=== PATIENT | female | born 1945 | race Caucasian/White ===

== ENCOUNTER → 2018-07-07 | Outpatient (CLI) | payer MEDICARE ==
[2018-07-07 13:26] LABS: Blood Urea Nitrogen 16 mg/dL (7-17)
--- NOTE | 2018-07-07 16:17 | CT ---
EXAMINATION TYPE: CT abdomen pelvis w con DATE OF EXAM: 07/07/2018 COMPARISON: Prior CT 03/13/2016 HISTORY: Abdominal and pelvic pain CT DLP: 1307 mGycm Automated exposure control for dose reduction was used. TECHNIQUE: Helical acquisition of images from the lung bases through the pelvis have been completed. CONTRAST: Performed without Oral Contrast and with IV Contrast, patient injected with 100 mL of Isovue 300. FINDINGS: There is a small hiatal hernia. Increased attenuation within the subcutaneous fat of the an terior lower abdomen may be due to injections, edema, ecchymosis, correlate. LUNG BASES: No significant interval change is appreciated, there are findings of interstitial lung di sease, no pleural or pericardial effusion. Coronary artery calcifications are present. AORTA: No significant interval change is appreciated, dense vascular calcifications are present. LIVER/GB: Liver shows low attenuation, gallbladder is normal. PANCREAS: No significant abnormality is seen. SPLEEN: No significant abnormality is seen. ADRENALS: No significant abnormality is seen. KIDNEYS: No significant abnormality is seen. REPRODUCTIVE ORGANS: Not seen BOWEL: There is a large amount of retained fecal debris present. The appendix is normal. FREE AIR: No Free Air visible. ASCITES: None visible. PELVIC ADENOPATHY: None visualized. RETROPERITONEAL ADENOPATHY: No Retroperitoneal Adenopathy visible. URINARY BLADDER: No significant abnormality is seen. OSSEOUS STRUCTURES: No significant abnormality is seen. IMPRESSION: CORRELATE FOR FECAL STASIS. No significant interval change. Correlate for hepatic steatosis. Addition al findings above.
== END | disposition home or self-care (01) ==
LOC: RADCTMAIN 12:25
PROVIDERS: ATTEND Family Medicine
DX: K59.09 Other constipation (principal); K44.9 Diaphragmatic hernia without obstruction or gangrene
CPT/HCPCS: 82565; 84520; 74177; 36415; Q9967

== ENCOUNTER 2019-01-31 03:33 | Observation (INO) | payer MEDICARE ==
--- NOTE | 2019-01-31 04:05 | ED ---
Chest Pain HPI - General Chief Complaint: Chest Pain Stated Complaint: Chest pain Time Seen by Provider: 01/31/19 03:49 Source: patient Mode of arrival: ambulatory Limitations: no limitations - History of Present Illness Initial Comments: This patient is 73-year-old woman who presents to the hospital to be evaluated for chest pain. She states that this had come on this morning after she had gotten up out of bed to use the bathroom. She noted the chest pain in the left chest, it was a heavy feeling. She states it is moderate intensity. She took a spirin and a total of 4 nitroglycerin and the sensation didn't resolve. She states she had similar episode last month, and went to [facility], where she had been admitted in the hospital. She states that she did have a diagnostic heart cath there and was told that she has to arteries on the backside of her heart that are at 70% blockage. She states she is scheduled to have stents placed on February 13 of this year. The patient states that she feels back at her baseline now. MD Complaint: chest pain Onset/Timin -: hour(s) Pain Location: left chest Pain Radiation: none Severity: moderate Quality: heaviness Consistency: now resolved Improves With: nitroglycerin Treatments Prior to Arrival: aspirin, nitroglycerin - Related Data Home Medications Medication Instructions Recorded Confirmed Albuterol Inhaler [Ventolin Hfa 2 puff INHALATION RT-Q6H PRN 03/13/16 03/13/16 Inhaler] Aspirin EC [Ecotrin Low Dose] 81 mg PO BID 03/13/16 03/13/16 Atorvastatin [Lipitor] 40 mg PO HS 03/13/16 03/13/16 Isosorbide Mononitrate ER [Imdur] 60 mg PO DAILY 03/13/16 03/13/16 Linaclotide [Linzess] 145 mcg PO DAILY 03/13/16 03/13/16 Lisinopril [Zestril] 5 mg PO DAILY 03/13/16 03/13/16 Loratadine [Claritin] 10 mg PO DAILY PRN 03/13/16 03/13/16 Metoprolol Succinate [Toprol XL] 50 mg PO HS 03/13/16 03/13/16 Nitroglycerin Sl Tabs [Nitrostat] 0.4 mg SUBLINGUAL Q5M PRN 03/13/16 03/13/16 Ranitidine HCl [Zantac] 150 mg PO BID PRN 03/13/16 03/13/16 lamoTRIgine [LaMICtal] 200 mg PO DAILY 03/13/16 03/13/16 sitaGLIPtin PHOS/metFORMIN HCL 2 tab PO W/SUPPER 03/13/16 03/13/16 [Janumet Xr 50-1,000 mg Tablet] traZODone HCL 50 mg PO HS PRN 03/13/16 03/13/16 traZODone HCL [Desyrel] 100 mg PO HS PRN 03/13/16 03/13/16 Previous Rx's Medication Instructions Recorded Levofloxacin [Levaquin] 500 mg PO DAILY #7 tab 03/15/16 Allergies Allergy/AdvReac Type Severity Reaction Status Date / Time No Known Allergies Allergy Verified 01/31/19 03:47 Review of Systems ROS Statement: Those systems with pertinent positive or pertinent negative responses have been documented in the HPI. ROS Other: All systems not noted in ROS Statement are negative. Constitutional: Denies: fever, chills, weakness Respiratory: Denies: cough, dyspnea Cardiovascular: Reports: as per HPI, chest pain. Denies: palpitations, orthopnea, edema, syncope Gastrointestinal: Denies: abdominal pain, vomiting, diarrhea Genitourinary: Denies: dysuria, hematuria Musculoskeletal: Denies: back pain Skin: Denies: rash Neurological: Denies: headache EKG Findings - EKG Results: EKG: interpreted by ERMD, sinus rhythm (Rate 68 bpm), normal axis, normal QRS, normal ST/T, no acute changes Past Medical History Past Medical History: Coronary Artery Disease (CAD), Chest Pain / Angina, COPD, Diabetes Mellitus, GERD/Reflux, Hyperlipidemia, Hypertension Additional Past Medical History / Comment(s): gastritis, diverticulitis History of Any Multi-Drug Resistant Organisms: None Reported Past Surgical History: Heart Catheterization With Stent, Hysterectomy, Orthopedic Surgery Additional Past Surgical History / Comment(s): Right knee replacement. Date of Last Stent Placement:: unknown Past Psychological History: Depression Smoking Status: Former smoker Past Alcohol Use History: None Reported Past Drug Use History: None Reported - Past Family History Father Family Medical History: Cancer, CVA/TIA Mother Family Medical History: Cancer, Myocardial Infarction ([place]) General Exam Limitations: no limitations General appearance: alert, in no apparent distress Head exam: Present: atraumatic, normocephalic Eye exam: Present: normal appearance. Absent: scleral icterus, conjunctival injection ENT exam: Present: normal oropharynx Neck exam: Present: normal inspection Respiratory exam: Present: wheezes (Trace expiratory wheeze), rales (Bilateral bases). Absent: respiratory distress, rhonchi, stridor, chest wall tenderness, accessory muscle use, decreased breath sounds Cardiovascular Exam: Present: regular rate, normal rhythm, systolic murmur (There is a grade 3/6 growling systolic ejection murmur, As it with aortic stenosis.). Absent: diastolic murmur, rubs, gallop GI/Abdominal exam: Present: soft. Absent: distended, tenderness, guarding, rebound, rigid, mass Extremities exam: Present: normal inspection, normal capillary refill. Absent: pedal edema, calf tenderness Back exam: Present: normal inspection. Absent: CVA tenderness (R), CVA tenderness (L) Neurological exam: Present: alert Skin exam: Present: warm, dry, intact, normal color. Absent: rash Course Vital Signs 01/31/19 01/31/19 01/31/19 03:44 03:50 04:10 Temperature 97.6 F Pulse Rate 75 60 61 Respiratory 20 19 20 Rate Blood Pressure 165/78 165/78 155/70 O2 Sat by Pulse 93 L 95 96 Oximetry 01/31/19 01/31/19 01/31/19 04:30 05:00 05:20 Temperature Pulse Rate 62 59 L 55 L Respiratory 19 17 18 Rate Blood Pressure 157/72 159/78 144/65 O2 Sat by Pulse 95 94 L 95 Oximetry Disposition Clinical Impression: Unstable angina pectoris Disposition: ADMITTED IP TO THIS HOSP Condition: Serious Is patient prescribed a controlled substance at d/c from ED?: No Referrals: Manjit Malhotra MD [Primary Care Provider] - 1-2 days
[2019-01-31 04:22] LABS: HGB 13.5 gm/dL (11.4-16.0); MCH 27.5 pg (25.0-35.0); MCV 85.8 fL (80.0-100.0); WBC 7.9 k/uL (3.8-10.6)
[2019-01-31 04:23] LABS: Basophils # (A) 0.1 k/uL (0-0.2); Basophils % (A) 1 %; Eosinophils # (A) 0.5 k/uL (0-0.7); Eosinophils % (A) 7 %; Lymphocytes # (A) 2.5 k/uL (1.0-4.8); Lymphocytes % (A) 32 %; Mean Platelet Volume 6.3; Monocytes # (A) 0.7 k/uL (0-1.0); Monocytes % (A) 8 %; Neutrophils # (A) 3.8 k/uL (1.3-7.7); Neutrophils % (A) 48 %; Platelet Count 236 k/uL (150-450); RDW 13.6 % (11.5-15.5)
[2019-01-31 04:26] LABS: Albumin 4.1 g/dL (3.5-5.0); Magnesium 1.7 mg/dL (1.6-2.3); Potassium 4.5 mmol/L (3.5-5.1); Total Bilirubin 0.5 mg/dL (0.2-1.3); Total Protein 7.9 g/dL (6.3-8.2)
[2019-01-31 04:27] LABS: INR 0.9 (<1.2); Partial Thromboplastin Time 31.2 sec (22.0-30.0); Prothrombin Time 9.8 sec (9.0-12.0)
--- NOTE | 2019-01-31 04:48 | XR ---
EXAMINATION TYPE: XR chest 1V portable DATE OF EXAM: 01/31/2019 COMPARISON: 03/14/2016 HISTORY: Chest pain TECHNIQUE: Single frontal view of the chest is obtained. FINDINGS: Heart is enlarged. There is some mild pulmonary edema. There is subsegmental atelectasis i n the lower lobes. There are chest leads. IMPRESSION: There is new pulmonary edema compared to last exam and could be mild heart failure.
[2019-01-31] MEDS ORDERED: MORPHINE SULFATE 4 MG/ML SYRINGE IV STA (05:38)
[2019-01-31] MEDS ORDERED: HEPARIN SODIUM,PORCINE 5,000 UNIT/ML 1 ML VIAL IV ONE (06:03)
[2019-01-31] MEDS ORDERED: MORPHINE SULFATE 2 MG/ML SYRINGE IVP PRN (06:03)
[2019-01-31] MEDS ORDERED: NITROGLYCERIN SL TABS 0.4 MG TAB SUBLINGUAL PRN ×2 (06:03→10:34)
[2019-01-31] MEDS: HEPARIN SOD,PORK IN 0.45% NACL 25,000 UNIT in 0.45% NACL 1 250ML.BAG IV SCH (07:07)
[2019-01-31] MEDS: SODIUM CHLORIDE 0.9% 1,000 ML IV SCH ×2 (07:10→17:05)
[2019-01-31 12:08] LABS: Glucose,Whole Blood 138 mg/dL (75-99)
--- NOTE | 2019-01-31 12:26 | CONS ---
MARIA DEL ROSARIO Tian is a 73-year-old lady with history of noninsulin dependent diabetes, hypertension, coronary artery disease, status post prior angioplasty, insulin-requiring diabetes, who presents to hospital with chest pain. She describes it as precordial chest pressure, mild to moderate intensity at rest, unrelated to exertion and unassociated with diaphoresis. Because of this, she came to hospital and got admitted. Her EKG does not reveal ischemic changes. She has had 3 sets of cardiac enzymes, 2 sets of cardiac enzymes that have been within normal limits. Creatinine is normal. Hemoglobin is 13.5. Patient apparently had a stress test through Dr. Comer and was advised to undergo cardiac catheterization. This was supposed to be done as outpatient in the next 1-2 weeks. At the time of my evaluation, patient appears comfortable at rest, hemodynamically stable and in no apparent distress. I advised the patient to undergo cardiac catheterization. This will be done tomorrow. PAST MEDICAL HISTORY: Significant for coronary artery disease, status post prior angioplasty, hypertension, dyslipidemia, diabetes. CURRENT MEDICATIONS: Include aspirin, Lipitor, Cymbalta, Levemir, Imdur Lopressor, sublingual nitroglycerine on a p.r.n. basis, Aricept; Januvia. ALLERGIES: There are no known drug allergies. FAMILY HISTORY: Is negative for premature coronary artery disease. SOCIAL HISTORY: Negative current smoking, EtOH abuse or drug abuse. REVIEW OF SYSTEMS: HEENT: Unremarkable. CARDIAC: As described above. RESPIRATORY: Negative. GENITOURINARY: Negative. ALLERGY/IMMUNOLOGY: Negative. SKIN Negative. MUSCULOSKELETAL: Negative. ENDOCRINE: Negative. DERM: Negative. CONSTITUTIONAL: Negative. ONCOLOGICAL: Negative. Rest of the system review is not relevant. PHYSICAL EXAM: Patient is comfortable at rest. Vital signs are stable. There is jugular venous distention. Carotid upstroke is normal. There is no bruit. chest exam reveals good air entry bilaterally. Heart exam reveals first and second heart sounds and there is a Grade 3 by 6 ejection systolic murmur in the aortic area. Abdomen is soft. Exam of extremities did not reveal edema. Peripheral pulses are felt. EKG does not reveal ischemic changes. Cardiac enzymes have been negative. ASSESSMENT: 1. Unstable angina. 2. Hypertension. 3. Diabetes. 4. Dyslipidemia. 5. Aortic stenosis. PLAN: I advised the patient to undergo cardiac catheterization. This will be done tomorrow. We will obtain her outpatient records and will obtain a 2D echo on this admission. MMDARBY / ANDREWN: [id number] /
[2019-01-31] MEDS ORDERED: IPRATROPIUM-ALBUTEROL 3 ML NEB INHALATION PRN (15:49)
--- NOTE | 2019-01-31 15:56 | NM ---
EXAMINATION TYPE: NM pul vent and perfuse DATE OF EXAM: 01/31/2019 COMPARISON: Chest x-ray same day HISTORY: Elevated dimer, chest pain TECHNIQUE: Utilizing inhalation of 42.3 mCi Tc 99m DTPA aerosol and intravenous injection of 5.1 mCi of Tc 99m MAA, ventilation and perfusion images are acquired post injection in multiple projections. FINDINGS: Near normal radiotracer distribution is noted in the lungs on perfusion imaging. There is no evidence of mismatched defects. There is central clumping of the radiopharmaceutical on ventilation imaging, subsegmental peripheral defects are noted possibly due to underlying COPD. IMPRESSION: Low probability for pulmonary embolism.
--- NOTE | 2019-01-31 16:07 | P.HPIM ---
History of Present Illness H&P Date: 01/31/19 Chief Complaint: Chest pain This is a 73-year-old female with history of CAD, chest pain, angina, COPD, diabetes mellitus, gastroesophageal reflux disease, hyperlipidemia, hype rtension, prior heart catheterization with stent, depression, ongoing nicotine dependence and multiple other medical issues, presented to the ER with complaints of left-sided chest pressure. Reports chest pressure occurred this morning after awakening and using the bathroom, lasting for an hour, with no radiation, no increased shortness of breath, no diaphoresis. She took 4 nitroglycerin sublinguals and an aspirin with no relief. Reports presentation similar to one month ago when she went to [facility], underwent cardiac catheterization and was told that she had a 70% blockage in 2 arteries on the backside of the heart,scheduled to have stent placements in a couple weeks. Troponins 2 within normal limits. EKG reporting normal sinus rhythm. Chest x- ray reporting new pulmonary edema, possibly mild heart failure. Complaining of fluctuating chest pain. Maintained on heparin drip. Cardiology consulted. Vital signs stable. Review of Systems ROS Statement: Those systems with pertinent positive or pertinent negative responses have been documented in the HPI. ROS Other: All systems not noted in ROS Statement are negative. Past Medical History Past Medical History: Coronary Artery Disease (CAD), Chest Pain / Angina, COPD, Diabetes Mellitus, GERD/Reflux, Hyperlipidemia, Hypertension Additional Past Medical History / Comment(s): gastritis, diverticulitis History of Any Multi-Drug Resistant Organisms: None Reported Past Surgical History: Heart Catheterization With Stent, Hysterectomy, Orthopedic Surgery Additional Past Surgical History / Comment(s): Right knee replacement. Date of Last Stent Placement:: unknown Past Psychological History: Depression Smoking Status: Former smoker Past Alcohol Use History: None Reported Past Drug Use History: None Reported - Past Family History Father Family Medical History: Cancer, CVA/TIA Mother Family Medical History: Cancer, Myocardial Infarction ([place]) Medications and Allergies Home Medications Medication Instructions Recorded Confirmed Type Aspirin EC [Ecotrin Low Dose] 81 mg PO BID 03/13/16 01/31/19 History Atorvastatin [Lipitor] 40 mg PO HS 03/13/16 01/31/19 History Nitroglycerin Sl Tabs [Nitrostat] 0.4 mg SUBLINGUAL Q5M PRN 03/13/16 01/31/19 History lamoTRIgine [LaMICtal] 200 mg PO DAILY 03/13/16 01/31/19 History DULoxetine HCL [Cymbalta] 60 mg PO BID 01/31/19 01/31/19 History Donepezil [Aricept] 10 mg PO DAILY 01/31/19 01/31/19 History Insulin Detemir (Levemir) [Levemir] 40 unit SQ DAILY 01/31/19 01/31/19 History Isosorbide Mononitrate ER [Imdur] 30 mg PO DAILY 01/31/19 01/31/19 History Metoprolol Tartrate [Lopressor] 12.5 mg PO BID 01/31/19 01/31/19 History sitaGLIPtin [Januvia] 100 mg PO DAILY 01/31/19 01/31/19 History Allergies Allergy/AdvReac Type Severity Reaction Status Date / Time No Known Allergies Allergy Verified 01/31/19 09:34 Physical Exam Vitals: Vital Signs Temp Pulse Resp BP Pulse Ox 01/31/19 06:30 61 18 171/75 94 L 01/31/19 06:00 64 19 136/69 93 L 01/31/19 05:20 55 L 18 144/65 95 01/31/19 05:00 59 L 17 159/78 94 L 01/31/19 04:30 62 19 157/72 95 01/31/19 04:10 61 20 155/70 96 01/31/19 03:50 60 19 165/78 95 01/31/19 03:44 97.6 F 75 20 165/78 93 L Intake and Output 01/30/19 01/31/19 01/31/19 22:59 06:59 14:59 Other: Weight 63.503 kg PHYSICAL EXAM: VITAL SIGNS: As above GENERAL: Sitting up in bed, no acute distress HEENT: Conjunctivae normal. eyes normal. NECK: Mild JVD. No thyroid enlargement. No LNs CARDIOVASCULAR: S1, S2 regular.Systolic murmur. RESPIRATION: Breath sounds diminished in the bases. No rhonchi, bilateral crackles. Occasional fine expiratory wheezing ABDOMEN: Soft, nontender . No guarding. no masses palpable. No ascites, No hepatosplenomegaly.Bowel sounds heard. LEGS: No edema. no swelling PSYCHIATRY: Alert and oriented X3, fogetful at times, NERVOUS SYSTEM: Cranial N 2-12 grossly normal. Moves all 4 limbs. Diffuse weakness No focal deficits. Strength and sensation grossly intact.. Skin: no lesions, no rash Lymphatic system. No LN neck axilla. Results CBC & Chem 7: 01/31/19 03:49 01/31/19 03:49 Labs: Abnormal Lab Results - Last 24 Hours (Table) 01/31/19 01/31/19 Range/Units 03:49 03:49 APTT 31.2 H (22.0-30.0) sec BUN 19 H (7-17) mg/dL Glucose 153 H (74-99) mg/dL Alkaline Phosphatase 131 H (38-126) U/L Assessment and Plan Assessment: -Chest pain, possible angina, rule out acute coronary syndrome in a patient with history of CAD, chest pain, angina. -Aortic stenosis -COPD -Diabetes mellitus -Hypertension -Hyperlipidemia -History of gastritis -Depression -Ongoing nicotine dependence Plan: Continue current medication regime ,monitoring and symptomatic treatment. Echo pending. Maintain heparin drip as per cardiology. D-dimer ordered, if elevated, VQ scan to rule out PE in order to avoid contrast ,as patient is scheduled for cardiac catheterization tomorrow.home meds have been reviewed and resumed accordingly. The impression and plan of care has been dictated as directed. : I performed a history and examination of this patient, discussed the same with the dictator. I agree with the dictator's note ,documented as a scribe. Any additional findings or plans will be noted.
[2019-01-31] MEDS: IPRATROPIUM-ALBUTEROL 3 ML NEB INHALATION SCH ×2 (16:38→20:03)
[2019-01-31 16:45] LABS: Glucose,Whole Blood 230 mg/dL (75-99)
[2019-01-31] MEDS: METOPROLOL TARTRATE 12.5 MG TAB PO SCH (17:01)
[2019-01-31] MEDS: ISOSORBIDE MONONITRATE ER 30 MG TAB.ER.24H PO SCH (17:01)
[2019-01-31] MEDS: DONEPEZIL 10 MG TAB PO SCH (17:01)
[2019-01-31] MEDS: ALPRAZolam 0.25 MG TAB PO PRN (17:01)
[2019-01-31] MEDS: lamoTRIgine 100 MG TAB PO SCH (17:01)
[2019-01-31] MEDS: INSULIN DETEMIR (LEVEMIR) 100 UNIT/ML SYR SQ SCH (17:56)
[2019-01-31] MEDS: INSULIN ASPART (NovoLOG) 100 UNIT/ML VIAL SQ SCH ×2 (17:56→21:33)
[2019-01-31] MEDS ORDERED: HEPARIN SODIUM,PORCINE 5,000 UNIT/ML 1 ML VIAL IV STA (18:12)
[2019-01-31 21:19] LABS: Glucose,Whole Blood 213 mg/dL (75-99)
[2019-01-31] MEDS: DULoxetine HCL 60 MG CAPSULE.DR PO SCH (21:34)
[2019-02-01] MEDS: SODIUM CHLORIDE 0.9% 1,000 ML IV SCH ×2 (01:40→18:48)
[2019-02-01] MEDS ORDERED: SODIUM CHLORIDE 0.9% 1,000 ML in EMPTY BAG 1 BAG IV ONE (06:00)
[2019-02-01] MEDS ORDERED: ASPIRIN 325 MG TAB PO ONE (06:00)
[2019-02-01] MEDS ORDERED: ATORVASTATIN 80 MG TAB PO ONE (06:00)
[2019-02-01 06:20] LABS: Glucose,Whole Blood 94 mg/dL (75-99)
[2019-02-01] MEDS: INSULIN ASPART (NovoLOG) 100 UNIT/ML VIAL SQ SCH ×4 (06:24→20:26)
[2019-02-01] MEDS: INSULIN DETEMIR (LEVEMIR) 100 UNIT/ML SYR SQ SCH (06:26)
[2019-02-01] MEDS: METOPROLOL TARTRATE 12.5 MG TAB PO SCH ×2 (06:34→20:23)
[2019-02-01] MEDS: DULoxetine HCL 60 MG CAPSULE.DR PO SCH ×2 (06:34→20:23)
[2019-02-01] MEDS: ISOSORBIDE MONONITRATE ER 30 MG TAB.ER.24H PO SCH (06:34)
[2019-02-01] MEDS: DONEPEZIL 10 MG TAB PO SCH (06:34)
[2019-02-01] MEDS: lamoTRIgine 100 MG TAB PO SCH (06:34)
[2019-02-01] MEDS: HEPARIN SOD,PORK IN 0.45% NACL 25,000 UNIT in 0.45% NACL 1 250ML.BAG IV SCH (06:38)
[2019-02-01 07:24] LABS: Basophils % (A) 1 %; Eosinophils # (A) 0.5 k/uL (0-0.7); Eosinophils % (A) 6 %; HCT 39.5 % (34.0-46.0); HGB 12.7 gm/dL (11.4-16.0); Lymphocytes # (A) 1.4 k/uL (1.0-4.8); Lymphocytes % (A) 20 %; MCH 27.5 pg (25.0-35.0); MCHC 32.3 g/dL (31.0-37.0); MCV 85.2 fL (80.0-100.0); Mean Platelet Volume 6.6; Monocytes # (A) 0.4 k/uL (0-1.0); Monocytes % (A) 6 %; Neutrophils # (A) 4.7 k/uL (1.3-7.7); Neutrophils % (A) 66 %; Platelet Count 207 k/uL (150-450); RBC 4.63 m/uL (3.80-5.40); RDW 14.1 % (11.5-15.5); WBC 7.1 k/uL (3.8-10.6)
[2019-02-01 07:37] LABS: Calcium 9.2 mg/dL (8.4-10.2); Potassium 4.1 mmol/L (3.5-5.1)
[2019-02-01] MEDS: IPRATROPIUM-ALBUTEROL 3 ML NEB INHALATION SCH ×4 (08:13→20:08)
[2019-02-01] MEDS: ALPRAZolam 0.25 MG TAB PO PRN (10:03)
[2019-02-01 12:10] LABS: Glucose,Whole Blood 99 mg/dL (75-99)
--- NOTE | 2019-02-01 12:58 | ECHOF ---
Referral Reason: MEASUREMENTS -------- HEIGHT: 157.5 cm WEIGHT: 63.5 kg BP: 171/75 RVIDd: 2.5 cm (< 3.3) IVSd: 1.2 cm (0.6 - 1.1) LVIDd: 3.8 cm (3.9 - 5.3) LVPWd: 1.4 cm (0.6 - 1.1) IVSs: 1.6 cm LVIDs: 2.1 cm LVPWs: 1.6 cm LAESV Index (A-L): 38.16 ml/m Ao Diam: 2.9 cm (2.0 - 3.7) AV Cusp: 1.3 cm (1.5 - 2.6) MV EXCURSION: 11.856 mm (> 18.000) MV EF SLOPE: 48 mm/s (70 - 150) EPSS: 0.7 cm MV E Nikhil: 1.09 m/s MV DecT: 239 ms MV A Nikhil: 0.97 m/s MV E/A Ratio: 1.12 AV maxP.62 mmHg AV meanP.31 mmHg AR PHT: 375 ms RAP: 5.00 mmHg RVSP: 30.49 mmHg FINDINGS -------- Sinus rhythm. This was a technically adequate study. The left ventricular size is normal. There is moderate concentric left ventricular hypertrophy. O verall left ventricular systolic function is normal with, an EF between 60 - 65 %. Increased Lap Gr gabriela II Diastolic Dysfunction. The right ventricle is normal in size. LA is moderately dilated 34-39 ml/m2 The right atrial size is normal. Interatrial and interventricular septum intact. There is mild aortic regurgitation. Mild aortic stenosis with peak/mean pressure gradient of 33.62m mHg / 19.31mmHg , the aortic valve area by continuity equation is {ADONAY}. Peak/mean gradient across the Aortic Valve is 33.62mmHg / 19.31mmHg. Mild mitral annular calcification present. Moderate mitral regurgitation is present. Mild tricuspid regurgitation present. There is no evidence of pulmonary hypertension. The right v entricular systolic pressure, as measured by Doppler, is 30.49mmHg. There is no pulmonic regurgitation present. The aortic root size is normal. There is no pericardial effusion. CONCLUSIONS -------- 1. Sinus rhythm. 2. This was a technically adequate study. 3. The left ventricular size is normal. 4. There is moderate concentric left ventricular hypertrophy. 5. Overall left ventricular systolic function is normal with, an EF between 60 - 65 %. 6. Increased Lap Grade II Diastolic Dysfunction. 7. The right ventricle is normal in size. 8. LA is moderately dilated 34-39 ml/m2 9. The right atrial size is normal. 10. Interatrial and interventricular septum intact. 11. There is mild aortic regurgitation. 12. Mild aortic stenosis with peak/mean pressure gradient of 33.62mmHg / 19.31mmHg , the aortic valve area by continuity equation is {ADONAY}. 13. Peak/mean gradient across the Aortic Valve is 33.62mmHg / 19.31mmHg. 14. Mild mitral annular calcification present. 15. Moderate mitral regurgitation is present. 16. Mild tricuspid regurgitation present. 17. There is no evidence of pulmonary hypertension. 18. The right ventricular systolic pressure, as measured by Doppler, is 30.49mmHg. 19. There is no pulmonic regurgitation present. 20. The aortic root size is normal. 21. There is no pericardial effusion. SPRAYING MACHINE OPERATOR: Patience Sellers RDCS
[2019-02-01] MEDS ORDERED: VERAPAMIL 2.5 MG/ML 2 ML AMP ONE (13:11)
[2019-02-01] MEDS ORDERED: HEPARIN SODIUM 1,000 UN/ML (10ML VL) ONE (13:11)
[2019-02-01] MEDS ORDERED: LIDOCAINE 1% INJ 10MG/ML (20 ML MDV) ONE (13:11)
[2019-02-01] MEDS ORDERED: MIDAZOLAM 2 MG/2 ML VIAL IVP ONE (13:20)
[2019-02-01] MEDS ORDERED: LIDOCAINE 1% INJ 10MG/ML (20 ML MDV) SQ ONE (13:21)
[2019-02-01] MEDS ORDERED: VERAPAMIL SYRINGE (5 MG/10 ML) INTRAARTER ONE ×2 (13:22→13:38)
[2019-02-01] MEDS ORDERED: HEPARIN SODIUM 1,000 UN/ML (10ML VL) IV ONE (13:26)
[2019-02-01] MEDS ORDERED: IV FLUID CONTINUATION 300 ML IV ONE (13:27)
[2019-02-01] MEDS ORDERED: ENALAPRILAT 1.25 MG/ML 1 ML VIAL ONE (13:29)
[2019-02-01] MEDS ORDERED: hydrALAZINE HCL 20 MG/ML 1 ML VIAL ONE (13:29)
[2019-02-01] MEDS ORDERED: hydrALAZINE HCL 20 MG/ML 1 ML VIAL IV ONE (13:31)
[2019-02-01] MEDS ORDERED: ENALAPRILAT 1.25 MG/ML 1 ML VIAL IV ONE (13:32)
[2019-02-01] MEDS ORDERED: IOPAMIDOL-370 125ML BTL INJ ONE (13:38)
[2019-02-01] MEDS ORDERED: RX INFO: IV CONTRAST WAS GIVEN 1 EACH MISC MISCELLANE PRN (13:51)
[2019-02-01] MEDS ORDERED: SODIUM CHLORIDE 0.9% 1,000 ML IV SCH (14:00)
--- NOTE | 2019-02-01 14:01 | P.PCN ---
Date of Procedure: 02/01/19 Operative Findings: CARDIAC CATHETERIZATION PERFORMING PHYSICIAN: Clif Comer MD, RPVI PROCEDURE PERFORMED: 1. Selective right and left coronary angiogram 2. Left heart catheterization INDICATION: This is a pleasant 73-year-old female patient with history of coronary artery disease based on recent heart catheterization as well as hypertension and dyslipidemia presented to the hospital with a chest discomfort. Few weeks ago, she was admitted to [facility] with a chest discomfort and was ruled out for acute coronary event. Myocardial perfusion imaging stress test was performed and revealed lateral ischemia. Because of that a heart catheterization was advised. The heart catheterization at that point revealed intermediate to severe disease involving the proximal RCA as well as intermediate to severe disease involving the first diagonal branch of the LAD. Maximize medical treatment was advised. The patient presented to the hospital complaining of chest discomfort again. COMPLICATION: None APPROACH: Right radial artery LEVEL OF SEDATION: Moderate with sedation duration of 23 minutes PROCEDURE DESCRIPTION: After obtaining an informed consent, the patient was brought to cardiac laboratory immunologist. Local anesthesia was performed using lidocaine subcutaneously. The right radial artery was cannulated using Seldinger technique, the guidewire passed easily, following that we advanced a 5-Senegalese sheath dilator assembly, the wire and dilator were removed and sheath was flushed. Following that, 2 mg of verapamil along with 5000 unit heparin were given. Selective right and left coronary angiogram using a 6-Senegalese JR4 and JL 3.5 catheters. Following that we did left heart catheterization using 6-Senegalese pigtail catheter. The procedure was completed there was no complication. SELECTIVE CORONARY ANGIOGRAM: The right coronary artery: Is a large caliber vessel and a dominant vessel. Its calcified. The proximal RCA has a lesion appeared to be in the range of 60-70%. The mid RCA has mild disease only. The RCA distally appears to be normal and bifurcates into PDA and PLV branches and both appeared to be angiographically normal. Left main: The distal left main appears to have a plaque in the range of 30%. The left circumflex: Is a large caliber vessel and nondominant vessel. The mid left circumflex has a lesion appeared to be in the range of 40-50%. The left anterior descending artery: The proximal LAD appeared to be angiographically normal. It gives rises into the first diagonal branch which is a large caliber vessel with a plaque in the midportion appears to be in the range of 70%. The mid LAD has mild disease only and gives rises into a second diagonal branch which seems to be normal. The LAD distally appeared to have mild disease only. HEMODYNAMICS: The LVEDP was 12 mmHg. No gradient was seen across aortic valve CONCLUSION: 1. Intermediate to severe disease involving the proximal RCA 2. Severe disease involving the first diagonal branch of the LAD POSTPROCEDURE MANAGEMENT: 1. FFR of the RCA 2. PCI of the diagonal branch
[2019-02-01 14:06] LABS: Hemoglobin A1C 10.4 % (4.0-6.0)
[2019-02-01 15:22] VITALS: BMI 29.0
--- NOTE | 2019-02-01 15:47 | P.PN ---
Subjective Progress Note Date: 02/01/19 This is a 73-year-old female with history of CAD, chest pain, angina, COPD, diabetes mellitus, gastroesophageal reflux disease, hyperlipidemia, hypertension, prior heart catheterization with stent, depression, ongoing nicotine dependence and multiple other medical issues, presented to the ER with complaints of left-sided chest pressure. Reports chest pressure occurred this morning after awakening and using the bathroom, lasting for an hour, with no radiation, no increased shortness of breath, no diaphoresis. She took 4 nitroglycerin sublinguals and an aspirin with no relief. Reports presentation similar to one month ago when she went to [facility], underwent cardiac catheterization and was told that she had a 70% blockage in 2 arteries on the backside of the heart,scheduled to have stent placements in a couple weeks. Troponins 2 within normal limits. EKG reporting normal sinus rhythm. Chest x- ray reporting new pulmonary edema, possibly mild heart failure. Complaining of fluctuating chest pain. Maintained on heparin drip. Cardiology consulted. Vital signs stable. 02/01/2019 reports chest pain this morning, VSS, NPO. Echo reporting normal LV function, EF 60-65%, increased left grade II diastolic dysfunction, moderately dilated LA, 34-39 MLS/M2, moderate mitral regurgitation. Elevated d- dimer, VQ scan reported low probability of PE.Scheduled for cardiac cath today. Objective - Vital Signs Vital signs: Vital Signs Temp 97.6 F 02/01/19 12:00 Pulse 74 02/01/19 12:05 Resp 18 02/01/19 12:00 BP 150/70 02/01/19 12:00 Pulse Ox 94 L 02/01/19 12:00 Intake & Output 01/31/19 02/01/19 02/01/19 18:59 06:59 18:59 Intake Total 564.074 680 Balance 564.074 680 Weight 72 kg Intake: IV 200 Intake, IV Titration 84.074 Amount Heparin Sod,Pork in 0.45% 84.074 NaCl 25,000 unit In 0.45 % NaCl 1 250ml.bag @ 12 UNITS/KG/HR 7.62 mls/hr IV .Q24H DANA Rx#: [id number] Oral 480 480 Other: Voiding Method Toilet Toilet Toilet # Voids 2 2 1 - Exam VITAL SIGNS: As above GENERAL: Sitting up in bed, no acute distress. HEENT: Conjunctivae normal. eyes normal. NECK: Mild JVD. No thyroid enlargement. No LNs CARDIOVASCULAR: S1, S2 regular.Systolic murmur. RESPIRATION: Breath sounds diminished in the bases. No rhonchi, bilateral crackles. ABDOMEN: Soft, nontender . No guarding. no masses palpable.Bowel sounds heard. LEGS: No edema. no swelling. PSYCHIATRY: Alert and oriented X3, fogetful at times, NERVOUS SYSTEM: Cranial N 2-12 grossly normal. Moves all 4 limbs. Diffuse weakness No focal deficits. Strength and sensation grossly intact.. Skin: no lesions, no rash Lymphatic system. No LN neck axilla. - Labs CBC & Chem 7: 02/01/19 06:36 02/01/19 06:36 Labs: Abnormal Lab Results - Last 24 Hours (Table) 01/31/19 01/31/19 01/31/19 Range/Units 16:43 17:12 21:17 APTT 45.9 H (22.0-30.0) sec Chloride (98-107) mmol/L POC Glucose (mg/dL) 230 H 213 H (75-99) mg/dL Hemoglobin A1c (4.0-6.0) % HDL Cholesterol (40-60) mg/dL 02/01/19 02/01/19 02/01/19 Range/Units 00:12 06:36 06:36 APTT 62.6 H (22.0-30.0) sec Chloride 109 H (98-107) mmol/L POC Glucose (mg/dL) (75-99) mg/dL Hemoglobin A1c 10.4 H (4.0-6.0) % HDL Cholesterol 35 L (40-60) mg/dL Assessment and Plan Assessment: -Chest pain, possible angina, rule out acute coronary syndrome in a patient with history of CAD, chest pain, angina. -Aortic stenosis -COPD -Diabetes mellitus -Hypertension -Hyperlipidemia -History of gastritis -Depression -Ongoing nicotine dependence Plan: Continue current medication regime ,monitoring and symptomatic treatment. Echo pending. Maintain heparin drip as per cardiology. D-dimer ordered, if elevated, VQ scan to rule out PE in order to avoid contrast ,as patient is scheduled for cardiac catheterization tomorrow.home meds have been reviewed and resumed accordingly. The impression and plan of care has been dictated as directed. : I performed a history and examination of this patient, discussed the same with the dictator. I agree with the dictator's note ,documented as a scribe. Any additional findings or plans will be noted.
[2019-02-01 17:54] LABS: Glucose,Whole Blood 120 mg/dL (75-99)
[2019-02-01 20:23] LABS: Glucose,Whole Blood 219 mg/dL (75-99)
[2019-02-01] MEDS: ACETAMINOPHEN TAB 325 MG TAB PO PRN (21:50)
[2019-02-02] MEDS: HEPARIN SOD,PORK IN 0.45% NACL 25,000 UNIT in 0.45% NACL 1 250ML.BAG IV SCH (04:45)
[2019-02-02 06:17] LABS: Glucose,Whole Blood 236 mg/dL (75-99)
[2019-02-02] MEDS: ASPIRIN 325 MG TAB PO SCH (06:18)
[2019-02-02] MEDS: DONEPEZIL 10 MG TAB PO SCH (06:18)
[2019-02-02] MEDS: DULoxetine HCL 60 MG CAPSULE.DR PO SCH ×2 (06:18→20:18)
[2019-02-02] MEDS: ISOSORBIDE MONONITRATE ER 30 MG TAB.ER.24H PO SCH (06:19)
[2019-02-02] MEDS: METOPROLOL TARTRATE 12.5 MG TAB PO SCH ×2 (06:19→20:17)
[2019-02-02] MEDS: lamoTRIgine 100 MG TAB PO SCH (06:19)
[2019-02-02] MEDS: INSULIN ASPART (NovoLOG) 100 UNIT/ML VIAL SQ SCH ×4 (06:21→20:18)
[2019-02-02] MEDS: INSULIN DETEMIR (LEVEMIR) 100 UNIT/ML SYR SQ SCH (06:21)
[2019-02-02] MEDS: ACETAMINOPHEN TAB 325 MG TAB PO PRN ×2 (06:45→22:03)
[2019-02-02 06:49] LABS: Basophils % (A) 1 %; Eosinophils # (A) 0.4 k/uL (0-0.7); Eosinophils % (A) 5 %; HCT 41.3 % (34.0-46.0); HGB 13.3 gm/dL (11.4-16.0); Lymphocytes # (A) 1.3 k/uL (1.0-4.8); Lymphocytes % (A) 18 %; MCH 27.7 pg (25.0-35.0); MCHC 32.3 g/dL (31.0-37.0); MCV 85.7 fL (80.0-100.0); Monocytes # (A) 0.6 k/uL (0-1.0); Monocytes % (A) 8 %; Neutrophils # (A) 4.9 k/uL (1.3-7.7); Neutrophils % (A) 67 %; Platelet Count 217 k/uL (150-450); RBC 4.82 m/uL (3.80-5.40); RDW 13.9 % (11.5-15.5); WBC 7.3 k/uL (3.8-10.6)
[2019-02-02 06:59] LABS: African American GFR (CKD) >90 (>60 ml/min/1.73 sqM); Anion Gap 12 mmol/L; Blood Urea Nitrogen 8 mg/dL (7-17); Calcium 9.9 mg/dL (8.4-10.2); Carbon Dioxide 21 mmol/L (22-30); Chloride 106 mmol/L (98-107); Glucose 242 mg/dL (74-99); Non-African American GFR(CKD) 84 (>60 ml/min/1.73 sqM); Potassium 4.2 mmol/L (3.5-5.1); Sodium 139 mmol/L (137-145)
[2019-02-02] MEDS: IPRATROPIUM-ALBUTEROL 3 ML NEB INHALATION SCH ×4 (08:55→20:59)
[2019-02-02] MEDS ORDERED: MIDAZOLAM 2 MG/2 ML VIAL IV ONE (10:48)
[2019-02-02] MEDS ORDERED: LIDOCAINE 1% INJ 10MG/ML (20 ML MDV) SQ ONE (10:49)
[2019-02-02] MEDS ORDERED: HYDROmorphone 1 MG/ML 1 ML SYRINGE IVP ONE (10:54)
[2019-02-02] MEDS ORDERED: IV FLUID CONTINUATION 900 ML IV ONE (10:54)
[2019-02-02] MEDS ORDERED: BIVALIRUDIN 250 MG in SODIUM CHLORIDE 0.9% 50 ML IV ONE (10:56)
[2019-02-02] MEDS ORDERED: BIVALIRUDIN BOLUS 250 MG/50 ML IV ONE (10:56)
[2019-02-02] MEDS ORDERED: NITROGLYCERIN 1000MCG/10ML SYRINGE INTRACORON ONE (11:19)
[2019-02-02] MEDS ORDERED: CLOPIDOGREL 75 MG TAB PO ONE (11:26)
[2019-02-02] MEDS ORDERED: ADENOSINE 90 MG in SODIUM CHLORIDE 0.9% 60 ML IVP ONE (11:32)
[2019-02-02] MEDS ORDERED: IOPAMIDOL-370 125ML BTL INJ ONE (11:36)
[2019-02-02] MEDS ORDERED: fentaNYL (PF) 50 MCG/ML 2 ML AMP IV ONE (11:38)
[2019-02-02] MEDS ORDERED: ZOLPIDEM 5 MG TAB PO PRN (11:43)
[2019-02-02] MEDS ORDERED: NITROGLYCERIN SL TABS 0.4 MG TAB SUBLINGUAL PRN (11:43)
[2019-02-02] MEDS ORDERED: RX INFO: IV CONTRAST WAS GIVEN 1 EACH MISC MISCELLANE PRN (11:43)
[2019-02-02] MEDS ORDERED: ATROPINE SULFATE 0.1 MG/ML 10ML SYRINGE IV PRN (11:43)
[2019-02-02] MEDS ORDERED: MAG HYDROX/AL HYDROX/SIMETH 30 ML CUP PO PRN (11:43)
[2019-02-02] MEDS ORDERED: SODIUM CHLORIDE 0.9% 1,000 ML IV SCH (11:45)
[2019-02-02] MEDS ORDERED: ONDANSETRON 4 MG/2 ML VIAL IVP ONE (12:00)
--- NOTE | 2019-02-02 12:14 | PTCA ---
PERCUTANEOUSTRANS CORORONARY ANGIOGRAPHY DATE OF SERVICE: 02/02/2019. PROCEDURE PERFORMED: 1. Successful balloon angiogram of the first diagonal branch of the LAD. 2. Fractional flow reserve (FFR) of the RCA. INDICATION: This is a very pleasant 73-year-old female patient who was admitted to the hospital with chest discomfort, underwent a heart catheterization yesterday and that revealed intermediate to severe disease involving the RCA and severe disease involving the first diagonal branch of the LAD. APPROACH: Right common femoral artery. COMPLICATION: None. LEVEL OF SEDATION: Moderate with sedation length of 48 minutes. PROCEDURE DESCRIPTION: After obtaining an informed consent, the patient was brought to the cardiac warehouse general laborer. The right common femoral artery was cannulated using micropuncture technique, the micropuncture wire passed easily then I placed a 6-Romansh sheath in the right groin. At that point, anticoagulation was initiated using Angiomax. Subsequently, I did engage the left main using JL3.5 guide. I did wire the LAD using a run-through wire and I did wire the first diagonal branch using a whisper wire. After that I did balloon angioplasty of the diagonal using 2.5 x 12 mm balloon. I attempted advancing the suleiman 15 mm stent but the stent will not cross from the LAD to the diagonal because the ostial diagonal was quite calcified. Because of that and because I was concerned about the stent dislodged from the balloon, I decided to stop. I did an angiogram which showed good angiographic results with non flow-limiting dissection involving the diagonal, but good outcome. The procedure was completed without any complication at that point. Subsequently, after zeroing the Doppler wire and equalizing between the Doppler wire and the guiding catheter which was JR4 guiding catheter with an FFR per IV adenosine infusion of the RCA and that came into be nonischemic at 0.95. CONCLUSION: 1. Successful balloon angioplasty of the first diagonal branch of the LAD. 2. Fractional flow reserve (FFR) of the RCA was performed and came into be nonischemic at 0.95. POSTPROCEDURE MANAGEMENT: 1. Medical treatment. 2. Follow up with the patient. NANCY / HAI: [id number] /
[2019-02-02 12:52] LABS: Glucose,Whole Blood 208 mg/dL (75-99)
[2019-02-02] MEDS: ALPRAZolam 0.5 MG TAB PO PRN (13:22)
[2019-02-02 13:38] LABS: Cholesterol 153 mg/dL (<200); HDL Cholesterol 37 mg/dL (40-60); LDL Cholesterol,Calculated 98 mg/dL (0-99); Triglycerides 90 mg/dL (<150)
--- NOTE | 2019-02-02 16:35 | PN ---
PROGRESS NOTE This is a 73 -year-old white female who went to the cardiac catheterization lab today, had a successful preliminary angiogram of the 1st diagonal branch of the LAD. She is post catheterization. Medications were reviewed and altered for possible discharge home in the next 24 hours. We will keep a catheterization tube in her, keep her prone for 4 hours. V/Q scan was negative for DVT and low probability for PE. Cardiovascular: S1, S2. Lungs scattered wheeze. Hematology negative Homans. Psych fair mood and affect. ASSESSMENT: 1. Status post PTCA. 2. Coronary artery disease. 3. Chronic obstructive pulmonary disease. 4. Dyslipidemia. 5. Anxiety, depression. Continue risk factor modification. Possible discharge home tomorrow or in the next 24 to 48 hours. MMODL / IJN: [id number] /
[2019-02-02 16:58] LABS: Glucose,Whole Blood 183 mg/dL (75-99)
[2019-02-02 20:13] LABS: Glucose,Whole Blood 287 mg/dL (75-99)
[2019-02-03] MEDS: ACETAMINOPHEN TAB 325 MG TAB PO PRN (04:04)
[2019-02-03] MEDS: HEPARIN SOD,PORK IN 0.45% NACL 25,000 UNIT in 0.45% NACL 1 250ML.BAG IV SCH (05:08)
[2019-02-03 06:19] LABS: Glucose,Whole Blood 213 mg/dL (75-99)
[2019-02-03] MEDS: INSULIN ASPART (NovoLOG) 100 UNIT/ML VIAL SQ SCH ×4 (06:32→21:03)
[2019-02-03] MEDS: IPRATROPIUM-ALBUTEROL 3 ML NEB INHALATION SCH ×5 (07:49→20:38)
[2019-02-03] MEDS: ASPIRIN 325 MG TAB PO SCH (09:50)
[2019-02-03] MEDS: lamoTRIgine 100 MG TAB PO SCH (09:50)
[2019-02-03] MEDS: METOPROLOL TARTRATE 12.5 MG TAB PO SCH ×2 (09:50→21:02)
[2019-02-03] MEDS: ISOSORBIDE MONONITRATE ER 60 MG TAB.ER.24H PO SCH (09:50)
[2019-02-03] MEDS: DULoxetine HCL 60 MG CAPSULE.DR PO SCH ×2 (09:50→21:03)
[2019-02-03] MEDS: DONEPEZIL 10 MG TAB PO SCH (09:51)
[2019-02-03] MEDS: INSULIN DETEMIR (LEVEMIR) 100 UNIT/ML SYR SQ SCH (09:51)
[2019-02-03] MEDS: CLOPIDOGREL 75 MG TAB PO SCH (10:12)
--- NOTE | 2019-02-03 10:21 | PN ---
PROGRESS NOTE Asmita is a 73-year-old lady who underwent successful balloon angioplasty of first diagonal branch of LAD and an FFR of RCA that was nonischemic. This morning, patient denies any chest pain, but states that she is fatigued and tired. EKGs until now did not reveal significant ischemic changes. PHYSICAL EXAMINATION: On exam, heart rate is 100 beats per minute. Blood pressure is 167/87. Respiratory rate is 18. Chest exam reveals diminished air entry at the bases. Heart exam reveals first and second heart sounds. No gallop. There is an ejection systolic murmur in the aortic area. Abdomen is soft. Exam of extremities reveals trace edema. Peripheral pulses are felt. The patient is currently on aspirin, Plavix, insulin, Imdur, Lopressor. ASSESSMENT: 1. Coronary artery disease, status post angioplasty. 2. Uncontrolled hypertension. 3. Chronic obstructive pulmonary disease. 4. Dyslipidemia. 5. Aortic stenosis. PLAN: I am going to add amlodipine 10 mg daily for better blood pressure control. She had an echocardiogram on this admission that revealed normal LV function with [id number] aortic stenosis. MMODL / IJN: [id number] /
[2019-02-03] MEDS: amLODIPine 10 MG TAB PO SCH (10:28)
[2019-02-03 12:27] LABS: Glucose,Whole Blood 210 mg/dL (75-99)
[2019-02-03 17:15] LABS: Glucose,Whole Blood 209 mg/dL (75-99)
[2019-02-03 20:35] LABS: Glucose,Whole Blood 295 mg/dL (75-99)
[2019-02-03] MEDS: ALPRAZolam 0.5 MG TAB PO PRN (21:03)
[2019-02-03 21:08] VITALS: RESP 16
--- NOTE | 2019-02-03 22:46 | PN ---
PROGRESS NOTE SUBJECTIVE: A 73-year-old white female who has been placed on amlodipine 10 mg daily for elevated hypertension today. She is status post heart catheterization with diagonal branch of the LAD, angioplasty today. Blood pressure currently is 102/47, pulse 60, respiratory 16 to 18, pulse is 80s to 90s, temp 97.9, oxygen 94% on room air. ASSESSMENT: Status post PTCA, diabetes mellitus, hypertension, unstable angina. Possible discharge home in the next 24-48 hours as blood pressure appears stable. MMODL / IJN: [id number] /
[2019-02-04 06:02] LABS: Glucose,Whole Blood 237 mg/dL (75-99)
[2019-02-04] MEDS: INSULIN ASPART (NovoLOG) 100 UNIT/ML VIAL SQ SCH ×3 (06:18→17:42)
[2019-02-04] MEDS: IPRATROPIUM-ALBUTEROL 3 ML NEB INHALATION SCH ×3 (08:23→15:51)
[2019-02-04] MEDS: INSULIN DETEMIR (LEVEMIR) 100 UNIT/ML SYR SQ SCH (09:02)
[2019-02-04] MEDS: DULoxetine HCL 60 MG CAPSULE.DR PO SCH (09:03)
[2019-02-04] MEDS: ASPIRIN 325 MG TAB PO SCH (09:03)
[2019-02-04] MEDS: CLOPIDOGREL 75 MG TAB PO SCH (09:03)
[2019-02-04] MEDS: lamoTRIgine 100 MG TAB PO SCH (09:03)
[2019-02-04] MEDS: METOPROLOL TARTRATE 12.5 MG TAB PO SCH (09:03)
[2019-02-04] MEDS: DONEPEZIL 10 MG TAB PO SCH (09:03)
[2019-02-04] MEDS: ISOSORBIDE MONONITRATE ER 60 MG TAB.ER.24H PO SCH (09:03)
[2019-02-04] MEDS: amLODIPine 10 MG TAB PO SCH (09:03)
[2019-02-04 09:19] VITALS: TEMP 97.7
[2019-02-04 11:13] VITALS: BP 111/58; PULSE 73
[2019-02-04 11:58] LABS: Glucose,Whole Blood 292 mg/dL (75-99)
--- NOTE | 2019-02-04 12:45 | P.PN ---
Subjective This is a pleasant 73-year-old female status post stent placement to the diagonal branch and FFR of the RCA and was nonischemic. She is seen and examined resting comfortably laying flat in bed in no acute distress. She denies symptoms of chest discomfort, shortness of breath, dizziness or palpitations. Blood pressure 111/58 heart rate 73 afebrile maintaining oxygen saturation on room air. Currently maintained on amlodipine 10 mg daily, aspirin 81 mg daily, Plavix 75 mg daily, Imdur 60 mg daily and Lopressor 12.5 mg twice a day. GENERAL: Well-appearing, well-nourished and in no acute distress. NECK: Supple without JVD or thyromegaly. LUNGS: Breath sounds clear to auscultation bilaterally. Respiration equal and unlabored. No wheezes, rales or rhonchi. HEART: Regular rate and rhythm with systolic ejection murmur at the base, no rubs or gallops. S1 and S2 heard. EXTREMITIES: Normal range of motion, no edema. No clubbing or cyanosis. Peripheral pulses intact. ASSESSMENT Coronary artery disease status post angioplasty Hypertension COPD Dyslipidemia Aortic stenosis PLAN Stable for discharge from a cardiac perspective on current medical regimen. Follow-up in the office with Dr. Comer. The importance of dual antiplatelet therapy has been discussed in great length with the patient. Nurse Practitioner note has been reviewed, I agree with a documented findings and plan of care. Patient was seen and examined. Objective - Vital Signs Vital signs: Vital Signs Temp 97.7 F 02/04/19 09:00 Pulse 73 02/04/19 11:05 Resp 16 02/04/19 11:05 BP 111/58 02/04/19 11:05 Pulse Ox 92 L 02/04/19 11:05 Intake & Output 02/03/19 02/04/19 02/04/19 18:59 06:59 18:59 Intake Total 1560 200 240 Balance 1560 200 240 Weight 67.2 kg Intake: Oral 1560 200 240 Other: Voiding Method Toilet Toilet # Voids 1 1 - Labs CBC & Chem 7: 02/02/19 06:31 02/03/19 06:16 Labs: Abnormal Lab Results - Last 24 Hours (Table) 02/03/19 02/03/19 02/04/19 Range/Units 17:06 20:34 06:00 POC Glucose (mg/dL) 209 H 295 H 237 H (75-99) mg/dL 02/04/19 Range/Units 11:57 POC Glucose (mg/dL) 292 H (75-99) mg/dL
[2019-02-05] MEDS ORDERED: ASPIRIN 81 MG PO SCH (09:00)
== END 2019-02-04 19:21 | disposition home or self-care (01) ==
LOC: EC 03:33 → 3SCARD 06:03 → INTOOBSV 02-02 15:36 → OBSVTOIN 02-02 15:36 → UNDODISIN 02-04 19:21
PROVIDERS: ADMIT Family Medicine; ATTEND Family Medicine
PROC: 4A023N7 Measurement of Cardiac Sampling and Pressure, Left Heart, Percutaneous Approach (ICD-10-PCS; 2019-02-01)
PROC: B2111ZZ Fluoroscopy of Multiple Coronary Arteries using Low Osmolar Contrast (ICD-10-PCS; 2019-02-01)
PROC: 4A033BC Measurement of Arterial Pressure, Coronary, Percutaneous Approach (ICD-10-PCS; 2019-02-02)
PROC: 02703ZZ Dilation of Coronary Artery, One Artery, Percutaneous Approach (ICD-10-PCS; principal; 2019-02-02 09:00)
DX: I25.110 Atherosclerotic heart disease of native coronary artery with unstable angina pectoris (principal); E11.9 Type 2 diabetes mellitus without complications; E78.5 Hyperlipidemia, unspecified; F17.210 Nicotine dependence, cigarettes, uncomplicated; F32.9 Major depressive disorder, single episode, unspecified; F41.9 Anxiety disorder, unspecified; I08.0 Rheumatic disorders of both mitral and aortic valves; I11.0 Hypertensive heart disease with heart failure; I50.9 Heart failure, unspecified; J44.9 Chronic obstructive pulmonary disease, unspecified; Z79.4 Long term (current) use of insulin; Z79.82 Long term (current) use of aspirin; Z79.899 Other long term (current) drug therapy; Z82.49 Family history of ischemic heart disease and other diseases of the circulatory system; Z90.710 Acquired absence of both cervix and uterus; Z96.651 Presence of right artificial knee joint; Z95.5 Presence of coronary angioplasty implant and graft; Z87.19 Personal history of other diseases of the digestive system; Z82.3 Family history of stroke; Z80.9 Family history of malignant neoplasm, unspecified; Z53.09 Procedure and treatment not carried out because of other contraindication; K57.90 Diverticulosis of intestine, part unspecified, without perforation or abscess without bleeding; R79.89 Other specified abnormal findings of blood chemistry; I10 Essential (primary) hypertension; F17.200 Nicotine dependence, unspecified, uncomplicated
CPT/HCPCS: 99152 ×2; 99153 ×3; 96376 ×2; 96366; 93005 ×3; 96365; 96375; 99285; 36415; 94640 ×6; 94760 ×2; 93306; 97116; 97162; 97165; 93571; 93458; 92920; 85379; 83880; 80061 ×2; 80053; 80048 ×2; 82565; 83735; 84484 ×2; 85025 ×3; 85610; 85730 ×2; 83036; 71045; 78582; G0378 ×5; C1769 ×6; C1887 ×2; C1725; C1894 ×2; C1874; A9540; A9567; J2250 ×2; J2270; J0360; J1644 ×3; J2405; J2001 ×2; J3010; J1170; J0583; J0153; Q9967 ×2

== ENCOUNTER 2020-03-14 22:53 | Emergency (ER) | payer MEDICARE ==
[2020-03-14 23:02] VITALS: RESP 18
--- NOTE | 2020-03-14 23:23 | ED ---
Psych HPI - General Source: patient, RN notes reviewed, old records reviewed Mode of arrival: ambulatory Limitations: no limitations - History of Present Illness MD Complaint: altered mental status, other (Not acting appropriately) -: unknown Associated Psychiatric Symptoms: none History of same: No Quality: intermittent Improves With: none Worsens With: none Context: significant life stressor Associated Symptoms: denies other symptoms Treatments Prior to Arrival: none <Bravo Horta - Last Filed: 03/14/20 23:15> <Sammy Hernandez - Last Filed: 03/15/20 13:05> - General Chief Complaint: Psychiatric Symptoms Stated Complaint: Mental Health Time Seen by Provider: 03/14/20 22:59 - History of Present Illness Initial Comments: This is a 74-year-old female brought in for psychiatric evaluation plan by her son states patient is acting appropriately. Patient needs a psychiatric evaluation per the son. She is combative and argumentative (Bravo Horta) - Related Data Home Medications Medication Instructions Recorded Confirmed Atorvastatin [Lipitor] 40 mg PO HS 03/13/16 03/15/20 Nitroglycerin Sl Tabs [Nitrostat] 0.4 mg SUBLINGUAL Q5M PRN 03/13/16 03/15/20 lamoTRIgine [LaMICtal] 200 mg PO DAILY 03/13/16 03/15/20 DULoxetine HCL [Cymbalta] 60 mg PO BID 01/31/19 03/15/20 Donepezil [Aricept] 10 mg PO HS 01/31/19 03/15/20 Insulin Detemir (Levemir) [Levemir] 40 unit SQ DAILY 01/31/19 03/15/20 sitaGLIPtin [Januvia] 100 mg PO DAILY 01/31/19 03/15/20 Cholecalciferol (Vitamin D3) 125 mcg PO DAILY 03/15/20 03/15/20 [Vitamin D3] Cider Vinegar [Apple Cider Vinegar] 300 mg PO DAILY 03/15/20 03/15/20 Exenatide Microspheres [Bydureon 2 mg SQ Q7D 03/15/20 03/15/20 Pen] Magnesium 500 mg PO DAILY 03/15/20 03/15/20 Metoprolol Succinate (ER) [Toprol 50 mg PO DAILY 03/15/20 03/15/20 Xl] Naproxen Sodium [Aleve] 220 mg PO BID PRN 03/15/20 03/15/20 rOPINIRole HCL [Requip] 0.25 mg PO HS 03/15/20 03/15/20 Previous Rx's Medication Instructions Recorded Clopidogrel [Plavix] 75 mg PO DAILY #90 tab 02/04/19 Isosorbide Mononitrate ER [Imdur] 60 mg PO DAILY tab.er.24h 02/04/19 amLODIPine [Norvasc] 10 mg PO DAILY #90 tab 02/04/19 Allergies Allergy/AdvReac Type Severity Reaction Status Date / Time No Known Allergies Allergy Verified 03/15/20 09:41 Review of Systems ROS Other: All systems not noted in ROS Statement are negative. <Bravo Horta - Last Filed: 03/14/20 23:15> ROS Other: All systems not noted in ROS Statement are negative. <Sammy Hernandez - Last Filed: 03/15/20 13:05> ROS Statement: Those systems with pertinent positive or pertinent negative responses have been documented in the HPI. Past Medical History Past Medical History: Coronary Artery Disease (CAD), Chest Pain / Angina, COPD, Diabetes Mellitus, GERD/Reflux, Hyperlipidemia, Hypertension Additional Past Medical History / Comment(s): gastritis, diverticulitis History of Any Multi-Drug Resistant Organisms: None Reported Past Surgical History: Heart Catheterization With Stent, Hysterectomy, Orthopedic Surgery Additional Past Surgical History / Comment(s): Right knee replacement. Past Anesthesia/Blood Transfusion Reactions: No Reported Reaction Date of Last Stent Placement:: unknown Past Psychological History: Depression Smoking Status: Never smoker Past Alcohol Use History: None Reported Past Drug Use History: None Reported - Past Family History Father Family Medical History: Cancer, CVA/TIA Mother Family Medical History: Cancer, Myocardial Infarction ([place]) <Bravo Horta - Last Filed: 03/14/20 23:15> General Exam Limitations: no limitations General appearance: alert, in no apparent distress Head exam: Present: atraumatic, normocephalic, normal inspection Eye exam: Present: normal appearance, PERRL, EOMI. Absent: scleral icterus, conjunctival injection, periorbital swelling ENT exam: Present: normal exam, mucous membranes moist Neck exam: Present: normal inspection. Absent: tenderness, meningismus, lymphadenopathy Respiratory exam: Present: normal lung sounds bilaterally. Absent: respiratory distress, wheezes, rales, rhonchi, stridor Cardiovascular Exam: Present: regular rate, normal rhythm, normal heart sounds. Absent: systolic murmur, diastolic murmur, rubs, gallop, clicks GI/Abdominal exam: Present: soft, normal bowel sounds. Absent: distended, tenderness, guarding, rebound, rigid Extremities exam: Present: normal inspection, full ROM, normal capillary refill. Absent: tenderness, pedal edema, joint swelling, calf tenderness Back exam: Present: normal inspection Neurological exam: Present: alert, oriented X3, CN II-XII intact Psychiatric exam: Present: normal affect, normal mood Skin exam: Present: warm, dry, intact, normal color. Absent: rash <Bravo Horta - Last Filed: 03/14/20 23:15> Course <Bravo Horta - Last Filed: 03/14/20 23:15> Vital Signs 03/14/20 03/15/20 03/15/20 22:55 05:10 09:02 Temperature 97.6 F 98.1 F 97.8 F Pulse Rate 106 H 78 75 Respiratory 18 18 18 Rate Blood Pressure 150/83 119/61 139/79 O2 Sat by Pulse 98 95 96 Oximetry - Reevaluation(s) Reevaluation #1: 03/14/20 23:23 Medical records reviewed (Bravo Horta) Medical Decision Making - Lab Data Result diagrams: 03/15/20 00:16 03/15/20 00:16 <Sammy Hernandez - Last Filed: 03/15/20 13:05> - Medical Decision Making The patient was evaluated by the psychiatric service and currently is not a risk to herself or anyone else. Patient does demonstrate evidence of situational depression. (Sammy Hernandez) - Lab Data Lab Results 03/15/20 03/15/20 03/15/20 Range/Units 00:16 00:16 00:16 WBC 8.6 (3.8-10.6) k/uL RBC 4.99 (3.80-5.40) m/uL Hgb 13.3 (11.4-16.0) gm/dL Hct 42.2 (34.0-46.0) % MCV 84.5 (80.0-100.0) fL MCH 26.6 (25.0-35.0) pg MCHC 31.5 (31.0-37.0) g/dL RDW 14.6 (11.5-15.5) % Plt Count 193 (150-450) k/uL MPV 8.1 Neutrophils % 66 % Lymphocytes % 22 % Monocytes % 6 % Eosinophils % 5 % Basophils % 0 % Neutrophils # 5.7 (1.3-7.7) k/uL Lymphocytes # 1.9 (1.0-4.8) k/uL Monocytes # 0.5 (0-1.0) k/uL Eosinophils # 0.4 (0-0.7) k/uL Basophils # 0.0 (0-0.2) k/uL Sodium 139 (137-145) mmol/L Potassium 3.6 (3.5-5.1) mmol/L Chloride 107 (98-107) mmol/L Carbon Dioxide 23 (22-30) mmol/L Anion Gap 9 mmol/L BUN 16 (7-17) mg/dL Creatinine 0.86 (0.52-1.04) mg/dL Est GFR (CKD-EPI)AfAm 77 (>60 ml/min/1.73 sqM) Est GFR (CKD-EPI)NonAf 67 (>60 ml/min/1.73 sqM) Glucose 360 H (74-99) mg/dL POC Glucose (mg/dL) (75-99) mg/dL POC Glu Mobile Paint Specialist ID Calcium 9.6 (8.4-10.2) mg/dL Urine Color Yellow Urine Appearance Clear (Clear) Urine pH 6.5 (5.0-8.0) Ur Specific [place] 1.019 (1.001-1.035) Urine Protein 2+ H (Negative) Urine Glucose (UA) 4+ H (Negative) Urine Ketones Negative (Negative) Urine Blood Negative (Negative) Urine Nitrite Negative (Negative) Urine Bilirubin Negative (Negative) Urine Urobilinogen 2.0 (<2.0) mg/dL Ur Leukocyte Esterase Negative (Negative) Urine RBC 1 (0-5) /hpf Urine WBC 2 (0-5) /hpf Ur Squamous Epith Cells 1 (0-4) /hpf Hyaline Casts 1 (0-2) /lpf Urine Mucus Rare H (None) /hpf Salicylates <1.0 mg/dL Urine Opiates Screen Not Detected (NotDetected) Ur Oxycodone Screen Not Detected (NotDetected) Urine Methadone Screen Not Detected (NotDetected) Ur Propoxyphene Screen Not Detected (NotDetected) Acetaminophen <10.0 ug/mL Ur Barbiturates Screen Not Detected (NotDetected) U Tricyclic Antidepress Not Detected (NotDetected) Ur Phencyclidine Scrn Not Detected (NotDetected) Ur Amphetamines Screen Not Detected (NotDetected) U Methamphetamines Scrn Not Detected (NotDetected) U Benzodiazepines Scrn Not Detected (NotDetected) Urine Cocaine Screen Not Detected (NotDetected) U Marijuana (THC) Screen Not Detected (NotDetected) Serum Alcohol <10 mg/dL 03/15/20 Range/Units 03:58 WBC (3.8-10.6) k/uL RBC (3.80-5.40) m/uL Hgb (11.4-16.0) gm/dL Hct (34.0-46.0) % MCV (80.0-100.0) fL MCH (25.0-35.0) pg MCHC (31.0-37.0) g/dL RDW (11.5-15.5) % Plt Count (150-450) k/uL MPV Neutrophils % % Lymphocytes % % Monocytes % % Eosinophils % % Basophils % % Neutrophils # (1.3-7.7) k/uL Lymphocytes # (1.0-4.8) k/uL Monocytes # (0-1.0) k/uL Eosinophils # (0-0.7) k/uL Basophils # (0-0.2) k/uL Sodium (137-145) mmol/L Potassium (3.5-5.1) mmol/L Chloride (98-107) mmol/L Carbon Dioxide (22-30) mmol/L Anion Gap mmol/L BUN (7-17) mg/dL Creatinine (0.52-1.04) mg/dL Est GFR (CKD-EPI)AfAm (>60 ml/min/1.73 sqM) Est GFR (CKD-EPI)NonAf (>60 ml/min/1.73 sqM) Glucose (74-99) mg/dL POC Glucose (mg/dL) 363 H (75-99) mg/dL POC Glu Mobile Paint Specialist ID Gavi Pickens Calcium (8.4-10.2) mg/dL Urine Color Urine Appearance (Clear) Urine pH (5.0-8.0) Ur Specific [place] (1.001-1.035) Urine Protein (Negative) Urine Glucose (UA) (Negative) Urine Ketones (Negative) Urine Blood (Negative) Urine Nitrite (Negative) Urine Bilirubin (Negative) Urine Urobilinogen (<2.0) mg/dL Ur Leukocyte Esterase (Negative) Urine RBC (0-5) /hpf Urine WBC (0-5) /hpf Ur Squamous Epith Cells (0-4) /hpf Hyaline Casts (0-2) /lpf Urine Mucus (None) /hpf Salicylates mg/dL Urine Opiates Screen (NotDetected) Ur Oxycodone Screen (NotDetected) Urine Methadone Screen (NotDetected) Ur Propoxyphene Screen (NotDetected) Acetaminophen ug/mL Ur Barbiturates Screen (NotDetected) U Tricyclic Antidepress (NotDetected) Ur Phencyclidine Scrn (NotDetected) Ur Amphetamines Screen (NotDetected) U Methamphetamines Scrn (NotDetected) U Benzodiazepines Scrn (NotDetected) Urine Cocaine Screen (NotDetected) U Marijuana (THC) Screen (NotDetected) Serum Alcohol mg/dL Disposition <Bravo Horta - Last Filed: 03/14/20 23:15> Is patient prescribed a controlled substance at d/c from ED?: No <Sammy Hernandez - Last Filed: 03/15/20 13:05> Clinical Impression: Depression Disposition: HOME SELF-CARE Condition: Good Instructions (If sedation given, give patient instructions): Depression (ED) Referrals: Manjit Malhotra MD [STAFF PHYSICIAN] - 1-2 days
[2020-03-15 00:32] LABS: Basophils % (A) 0 %; Eosinophils # (A) 0.4 k/uL (0-0.7); Eosinophils % (A) 5 %; HCT 42.2 % (34.0-46.0); HGB 13.3 gm/dL (11.4-16.0); Lymphocytes # (A) 1.9 k/uL (1.0-4.8); Lymphocytes % (A) 22 %; MCH 26.6 pg (25.0-35.0); MCHC 31.5 g/dL (31.0-37.0); MCV 84.5 fL (80.0-100.0); Mean Platelet Volume 8.1; Monocytes # (A) 0.5 k/uL (0-1.0); Monocytes % (A) 6 %; Neutrophils # (A) 5.7 k/uL (1.3-7.7); Neutrophils % (A) 66 %; Platelet Count 193 k/uL (150-450); RBC 4.99 m/uL (3.80-5.40); RDW 14.6 % (11.5-15.5); WBC 8.6 k/uL (3.8-10.6)
[2020-03-15 00:33] LABS: Appearance,Urine Clear (Clear); Bilirubin,Urine Negative (Negative); Blood,Urine Negative (Negative); Color,Urine Yellow; Glucose,Urine (UA) 4+ (Negative); Hyaline Casts,Urine 1 /lpf (0-2); Ketones,Urine Negative (Negative); Leukocyte Esterase,Urine Negative (Negative); Mucus,Urine Rare /hpf; Nitrite,Urine Negative (Negative); PH, Urine 6.5 (5.0-8.0); Protein,Urine 2+ (Negative); RBC,Urine 1 /hpf (0-5); Specific Gravity,Urine 1.019 (1.001-1.035); Squamous Epithelial Cell,Urine 1 /hpf (0-4); WBC,Urine 2 /hpf (0-5)
[2020-03-15 00:43] LABS: Amphetamine Screen,Urine Not Detected (NotDetected); Barbiturate Screen,Urine Not Detected (NotDetected); Benzodiazepines Screen,Urine Not Detected (NotDetected); Cocaine Screen,Urine Not Detected (NotDetected); Methadone Screen, Urine Not Detected (NotDetected); Opiate Screen,Urine Not Detected (NotDetected); Oxycodone Screen, Urine Not Detected (NotDetected); Phencyclidine Screen,Urine Not Detected (NotDetected); Tricyclic Antidepressant,Urine Not Detected (NotDetected); Urn Cannabinoid Scrn Not Detected (NotDetected)
[2020-03-15 00:45] LABS: Acetaminophen <10.0 ug/mL; African American GFR (CKD) 77 (>60 ml/min/1.73 sqM); Alcohol <10 mg/dL; Anion Gap 9 mmol/L; Blood Urea Nitrogen 16 mg/dL (7-17); Calcium 9.6 mg/dL (8.4-10.2); Carbon Dioxide 23 mmol/L (22-30); Chloride 107 mmol/L (98-107); Glucose 360 mg/dL (74-99); Non-African American GFR(CKD) 67 (>60 ml/min/1.73 sqM); Potassium 3.6 mmol/L (3.5-5.1); Salicylate <1.0 mg/dL; Sodium 139 mmol/L (137-145)
[2020-03-15 04:07] LABS: Glucose,Whole Blood 363 mg/dL (75-99)
[2020-03-15] MEDS ORDERED: INSULIN REGULAR 100 UNIT/ML VIAL SQ ONE (05:38)
[2020-03-15] MEDS ORDERED: BACITRACIN OINT 1 EACH PACKET TOPICAL ONE ×2 (08:13→14:33)
[2020-03-15] MEDS ORDERED: INSULIN DETEMIR (LEVEMIR) 100 UNIT/ML SYR SQ STA (11:08)
[2020-03-15] MEDS ORDERED: LINAGLIPTIN 5 MG TABLET PO STA (11:11)
[2020-03-15] MEDS ORDERED: INSULIN ASPART (NovoLOG) 100 UNIT/ML VIAL SQ SCH (12:30)
[2020-03-15 13:30] VITALS: BP 158/78; PULSE 78; TEMP 98
== END 2020-03-15 17:08 | disposition home or self-care (01) ==
LOC: EC 22:53
DX: F32.9 Major depressive disorder, single episode, unspecified (principal); I25.119 Atherosclerotic heart disease of native coronary artery with unspecified angina pectoris; I10 Essential (primary) hypertension; E78.5 Hyperlipidemia, unspecified; J44.9 Chronic obstructive pulmonary disease, unspecified; E11.9 Type 2 diabetes mellitus without complications; Z79.4 Long term (current) use of insulin; Z79.899 Other long term (current) drug therapy; Z95.5 Presence of coronary angioplasty implant and graft; Z96.651 Presence of right artificial knee joint
CPT/HCPCS: 99284 ×2; 82075; 36415; 80048; 85025; 81001; 80306; 83520; G0480 ×2; 80320; 80329

== ENCOUNTER 2021-01-27 11:41 | Emergency (ER) | payer MEDICARE ==
[2021-01-27 12:23] VITALS: BP 141/74; PULSE 78; RESP 18; TEMP 98.4
--- NOTE | 2021-01-27 14:01 | ED ---
Abdominal Pain HPI - General Chief Complaint: Abdominal Pain Stated Complaint: abd pain Time Seen by Provider: 01/27/21 12:50 Source: patient, RN notes reviewed Mode of arrival: ambulatory Limitations: no limitations - History of Present Illness Initial Comments: Patient is a 75-year-old female with history of heart disease, diabetes, hypertension, presenting to emergency Department with complaints of abdominal pain. She states about 3-4 weeks ago, she was using an insulin needle and the needle broke off in her abdomen on the right side. Patient states she did go to a local hospital who stated there was nothing to do about it. She states for th e past week or so she has been having pain in the left side of her abdomen. She states this been getting worse over the past couple days so she came in for evaluation. She denies any fevers, her appetite has been normal. She does have history of diverticulitis as well. Only abdominal surgery is hysterectomy. Her bowel movements have been normal. She denies any chest pain or shortness of breath, no dysuria, no vomiting or diarrhea. She did not go to her PCP for this. She has no further complaints. Her vitals are stable upon arrival. - Related Data Home Medications Medication Instructions Recorded Confirmed Atorvastatin [Lipitor] 40 mg PO HS 03/13/16 03/15/20 Nitroglycerin Sl Tabs [Nitrostat] 0.4 mg SUBLINGUAL Q5M PRN 03/13/16 03/15/20 lamoTRIgine [LaMICtal] 200 mg PO DAILY 03/13/16 03/15/20 DULoxetine HCL [Cymbalta] 60 mg PO BID 01/31/19 03/15/20 Donepezil [Aricept] 10 mg PO HS 01/31/19 03/15/20 Insulin Detemir (Levemir) [Levemir] 40 unit SQ DAILY 01/31/19 03/15/20 sitaGLIPtin [Januvia] 100 mg PO DAILY 01/31/19 03/15/20 Cholecalciferol (Vitamin D3) 125 mcg PO DAILY 03/15/20 03/15/20 [Vitamin D3] Cider Vinegar [Apple Cider Vinegar] 300 mg PO DAILY 03/15/20 03/15/20 Exenatide Microspheres [Bydureon 2 mg SQ Q7D 03/15/20 03/15/20 Pen] Magnesium 500 mg PO DAILY 03/15/20 03/15/20 Metoprolol Succinate (ER) [Toprol 50 mg PO DAILY 03/15/20 03/15/20 Xl] Naproxen Sodium [Aleve] 220 mg PO BID PRN 03/15/20 03/15/20 rOPINIRole HCL [Requip] 0.25 mg PO HS 03/15/20 03/15/20 Previous Rx's Medication Instructions Recorded Clopidogrel [Plavix] 75 mg PO DAILY #90 tab 02/04/19 Isosorbide Mononitrate ER [Imdur] 60 mg PO DAILY tab.er.24h 02/04/19 amLODIPine [Norvasc] 10 mg PO DAILY #90 tab 02/04/19 Allergies Allergy/AdvReac Type Severity Reaction Status Date / Time No Known Allergies Allergy Verified 01/27/21 12:23 Review of Systems ROS Statement: Those systems with pertinent positive or pertinent negative responses have been documented in the HPI. ROS Other: All systems not noted in ROS Statement are negative. Past Medical History Past Medical History: Coronary Artery Disease (CAD), Chest Pain / Angina, COPD, Diabetes Mellitus, GERD/Reflux, Hyperlipidemia, Hypertension Additional Past Medical History / Comment(s): gastritis, diverticulitis History of Any Multi-Drug Resistant Organisms: None Reported Past Surgical History: Heart Catheterization With Stent, Hysterectomy, Orthopedic Surgery Additional Past Surgical History / Comment(s): Right knee replacement. Past Anesthesia/Blood Transfusion Reactions: No Reported Reaction Date of Last Stent Placement:: unknown Past Psychological History: Depression Smoking Status: Never smoker Past Alcohol Use History: None Reported Past Drug Use History: None Reported - Past Family History Father Family Medical History: Cancer, CVA/TIA Mother Family Medical History: Cancer, Myocardial Infarction ([place]) General Exam - General Exam Comments Initial Comments: GENERAL: Patient is well-developed and well-nourished. Patient is nontoxic and in no acute distress. HEAD: Atraumatic, normocephalic. EYES: Pupils equal round and reactive to light, extraocular movements intact, sclera anicteric, conjunctiva are normal. Eyelids were unremarkable. ENT: Oropharynx clear without exudates. Moist mucous membranes. NECK: Normal range of motion, supple without lymphadenopathy or JVD. LUNGS: Unlabored respirations. Breath sounds clear to auscultation bilaterally and equal. No wheezes rales or rhonchi. HEART: Regular rate and rhythm without murmurs, rubs or gallops. ABDOMEN: Soft, tender to palpation of the left side of the abdomen, normoactive bowel sounds. No guarding, no rebound. No masses appreciated. She has some scar tissue formation on the right side where she normally injects her insulin. MUSCULOSKELETAL: Normal extremities with adequate strength and normal range of motion, no pitting or edema. No clubbing or cyanosis. NEUROLOGICAL: Patient is alert and oriented x 3. Normal speech, normal gait. PSYCH: Normal mood, normal affect. SKIN: Warm, Dry, normal turgor, no rashes or lesions noted. Limitations: no limitations Course Vital Signs 01/27/21 12:17 Temperature 98.4 F Pulse Rate 78 Respiratory 18 Rate Blood Pressure 141/74 O2 Sat by Pulse 98 Oximetry Medical Decision Making - Medical Decision Making Patient is a 75-year-old female here with left-sided abdominal pain over the past week. She states about a month ago her insulin needle to break off the right side of her belly, she is worried about this as well. She has history of diverticulitis, hysterectomy. Her vitals are stable upon arrival. Labs are unremarkable except for lipase is slightly elevated at 494, urine shows evidence of infection. CT of the abdomen and pelvis shows some subcutaneous fat striding overlying skin thickening along the lower abdomen, there is a tiny 4 mm linear hyperdensity, compatible with possible insulin needle in the same area. They wanted to correlate for cellulitis. The skin is not red, there is no erythema, no abscess seen, she is not febrile, no white count. I believe her abdominal pain and discomfort is in relation to mild pancreatitis. Patient initially refused any pain medications but stated she would like something when I reexamined her. They gave her a small dose of morphine. I discussed these findings with her. I recommended a clear liquid diet for the next 24 hours, lots of fluids. I will also give her surgical follow-up for this small needle within her abdomen. She is agreeable to this plan of care. Return parameters were discussed with her and she verbalized understanding. Case discussed with Dr. Kendrick. - Lab Data Result diagrams: 01/27/21 13:55 01/27/21 13:55 Lab Results 01/27/21 01/27/21 01/27/21 Range/Units 13:55 13:55 15:20 WBC 9.3 (3.8-10.6) k/uL RBC 4.96 (3.80-5.40) m/uL Hgb 14.1 (11.4-16.0) gm/dL Hct 43.5 (34.0-46.0) % MCV 87.7 (80.0-100.0) fL MCH 28.4 (25.0-35.0) pg MCHC 32.4 (31.0-37.0) g/dL RDW 13.5 (11.5-15.5) % Plt Count 190 (150-450) k/uL MPV 7.8 Neutrophils % 57 % Lymphocytes % 29 % Monocytes % 6 % Eosinophils % 5 % Basophils % 0 % Neutrophils # 5.3 (1.3-7.7) k/uL Lymphocytes # 2.7 (1.0-4.8) k/uL Monocytes # 0.6 (0-1.0) k/uL Eosinophils # 0.4 (0-0.7) k/uL Basophils # 0.0 (0-0.2) k/uL Sodium 138 (137-145) mmol/L Potassium 4.0 (3.5-5.1) mmol/L Chloride 101 (98-107) mmol/L Carbon Dioxide 27 (22-30) mmol/L Anion Gap 10 mmol/L BUN 16 (7-17) mg/dL Creatinine 0.69 (0.52-1.04) mg/dL Est GFR (CKD-EPI)AfAm >90 (>60 ml/min/1.73 sqM) Est GFR (CKD-EPI)NonAf 85 (>60 ml/min/1.73 sqM) Glucose 163 H (74-99) mg/dL Calcium 9.8 (8.4-10.2) mg/dL Total Bilirubin 0.4 (0.2-1.3) mg/dL AST 31 (14-36) U/L ALT 20 (4-34) U/L Alkaline Phosphatase 118 (38-126) U/L Total Protein 8.3 H (6.3-8.2) g/dL Albumin 4.2 (3.5-5.0) g/dL Amylase 176 H (30-110) U/L Lipase 494 H (23-300) U/L Urine Color Yellow Urine Appearance Clear (Clear) Urine pH 6.5 (5.0-8.0) Ur Specific [place] >1.050 H (1.001-1.035) Urine Protein 1+ H (Negative) Urine Glucose (UA) Negative (Negative) Urine Ketones Negative (Negative) Urine Blood Negative (Negative) Urine Nitrite Negative (Negative) Urine Bilirubin Negative (Negative) Urine Urobilinogen <2.0 (<2.0) mg/dL Ur Leukocyte Esterase Large H (Negative) Urine RBC 3 (0-5) /hpf Urine WBC 6 H (0-5) /hpf Ur Squamous Epith Cells 7 H (0-4) /hpf Urine Mucus Rare H (None) /hpf Disposition Clinical Impression: Abdominal pain, Pancreatitis Disposition: HOME SELF-CARE Condition: Stable Instructions (If sedation given, give patient instructions): Abdominal Pain (ED) Additional Instructions: Please return to the Emergency Department if symptoms worsen or any other concerns. Recommend clear liquid diet for the next 24 hours, increase your fluids. May take Tylenol or Motrin for any discomfort. Please follow-up with surgery, to address the needle in the belly. Is patient prescribed a controlled substance at d/c from ED?: No Referrals: None,Stated [REFERRING] - 1-2 days Fadia Garner DO [Doctor of Osteopathic Medicine] - 1-2 days Time of Disposition: 16:28
[2021-01-27 14:22] LABS: Basophils % (A) 0 %; Eosinophils # (A) 0.4 k/uL (0-0.7); Eosinophils % (A) 5 %; HCT 43.5 % (34.0-46.0); HGB 14.1 gm/dL (11.4-16.0); Lymphocytes # (A) 2.7 k/uL (1.0-4.8); Lymphocytes % (A) 29 %; MCH 28.4 pg (25.0-35.0); MCHC 32.4 g/dL (31.0-37.0); MCV 87.7 fL (80.0-100.0); Mean Platelet Volume 7.8; Monocytes # (A) 0.6 k/uL (0-1.0); Monocytes % (A) 6 %; Neutrophils # (A) 5.3 k/uL (1.3-7.7); Neutrophils % (A) 57 %; Platelet Count 190 k/uL (150-450); RBC 4.96 m/uL (3.80-5.40); RDW 13.5 % (11.5-15.5); WBC 9.3 k/uL (3.8-10.6)
[2021-01-27 14:42] LABS: ALT 20 U/L (4-34); AST 31 U/L (14-36); African American GFR (CKD) >90 (>60 ml/min/1.73 sqM); Albumin 4.2 g/dL (3.5-5.0); Alkaline Phosphatase 118 U/L (38-126); Amylase 176 U/L (30-110); Anion Gap 10 mmol/L; Blood Urea Nitrogen 16 mg/dL (7-17); Calcium 9.8 mg/dL (8.4-10.2); Carbon Dioxide 27 mmol/L (22-30); Chloride 101 mmol/L (98-107); Glucose 163 mg/dL (74-99); Lipase 494 U/L (23-300); Non-African American GFR(CKD) 85 (>60 ml/min/1.73 sqM); Sodium 138 mmol/L (137-145); Total Bilirubin 0.4 mg/dL (0.2-1.3); Total Protein 8.3 g/dL (6.3-8.2)
--- NOTE | 2021-01-27 15:27 | CT ---
EXAMINATION TYPE: CT abdomen pelvis w con DATE OF EXAM: 01/27/2021 COMPARISON: 07/07/2018 HISTORY: 75-year-old female Left sided abdominal pain. Possible foreign body right lower quadrant fro m injection. TECHNIQUE: Contiguous axial scanning of the abdomen and pelvis following administration of 100 ml Iso arline 300 IV contrast. Delayed images through the kidneys and coronal/sagittal reconstructions perform ed. CT DLP: 788.7 mGycm Automated exposure control for dose reduction was used. FINDINGS: Heart upper limits of normal in size without pericardial effusion. Scattered three-vessel coronary ar dean calcifications are present. Redemonstrated fibrotic changes in the visualized lower lungs. No pleural effusion. Small hiatal hernia. No focal liver lesion or biliary ductal dilatation. Portal venous system is patent. Gallbladder, adrenal glands, spleen, and pancreas show no gross abnormal body. Cortical hypodensities in the kidneys, largest measuring 1.3 cm. Likely cysts. Symmetric uptake and e xcretion of contrast from both kidneys. Moderate atherosclerotic calcifications of abdominal aorta and common iliac arteries. There is some liquid stool within the cecum. Mild circumferential wall thickening on the right side o f the colon. Moderate stool elsewhere throughout the colon. There is sigmoid diverticulosis. No peric olonic inflammatory change seen here. Normal appendix. No dilated small bowel, free fluid, or free air. Some prominent fluid-filled small bowel loops are pr esent in the lower abdomen and pelvis. Fat stranding and patchy density within the subcutaneous adipose layer of the lower abdomen. Some foc i of subcutaneous air present just below the umbilicus. Tiny 4 mm long linear density in the subcutaneous adipose layer left lower quadrant, refer to axial i mage 68 and coronal image 19. Overlying skin thickening. Bladder nondistended. Uterus surgically absent. Suspect visualization of the bilateral ovaries. No ab normal fluid collection in the pelvis or pelvic lymphadenopathy. Bones: Mild degenerative change at the hips. Hypertrophic facet arthropathy lower lumbar spine. Some heterogeneous density throughout the bones probably relating to underlying osteopenia. IMPRESSION: 1. SUBCUTANEOUS FAT STRANDING, increased tissue density, and overlying skin thickening along the ante rior lower abdomen, correlate for cellulitis. 2. Tiny 4 mm linear hypodensity within the subcutaneous adipose layer here along the anterior left lo wer quadrant. This may represent a small broken needle fragment. No other foreign body is clearly bina ntified. Small foci of subcutaneous air just below the umbilicus likely relating to injections. Clini shilpa correlate to exclude infection with gas-forming organism. No abscess formation. 3. Mild circumferential wall thickening along the right side of the colon and some liquid stool in th e cecum. Correlate for a nonspecific mild colitis. 4. Redemonstrated fibrotic changes in the lower lungs, small hiatal hernia, and sigmoid diverticulosi s.
[2021-01-27 15:53] LABS: Appearance,Urine Clear (Clear); Bilirubin,Urine Negative (Negative); Blood,Urine Negative (Negative); Color,Urine Yellow; Glucose,Urine (UA) Negative (Negative); Ketones,Urine Negative (Negative); Leukocyte Esterase,Urine Large (Negative); Mucus,Urine Rare /hpf; Nitrite,Urine Negative (Negative); PH, Urine 6.5 (5.0-8.0); Protein,Urine 1+ (Negative); RBC,Urine 3 /hpf (0-5); Squamous Epithelial Cell,Urine 7 /hpf (0-4); Urobilinogen,Urine <2.0 mg/dL (<2.0); WBC,Urine 6 /hpf (0-5)
[2021-01-27] MEDS ORDERED: MORPHINE SULFATE 2 MG/ML SYRINGE IVP ONE (16:02)
[2021-01-27 16:08] LABS: Specific Gravity,Urine >1.050 (1.001-1.035)
== END 2021-01-27 16:47 | disposition home or self-care (01) ==
LOC: EC 11:41
DX: K85.90 Acute pancreatitis without necrosis or infection, unspecified (principal); I11.9 Hypertensive heart disease without heart failure; E11.9 Type 2 diabetes mellitus without complications; I25.10 Atherosclerotic heart disease of native coronary artery without angina pectoris; E78.5 Hyperlipidemia, unspecified; K21.9 Gastro-esophageal reflux disease without esophagitis; F32.9 Major depressive disorder, single episode, unspecified; Z90.710 Acquired absence of both cervix and uterus; Z79.4 Long term (current) use of insulin; Z79.02 Long term (current) use of antithrombotics/antiplatelets; Z96.651 Presence of right artificial knee joint; Z79.899 Other long term (current) drug therapy
CPT/HCPCS: 99284; 96374; 36415; 80053; 82150; 83690; 85025; 81001; 74177; J2270; Q9967

== ENCOUNTER 2024-06-28 16:46 | Inpatient (IN) | payer MEDICARE ==
[2024-06-28] MEDS: ACETAMINOPHEN TAB 325 MG TAB PO STA (17:03)
[2024-06-28 17:19] LABS: Basophils % (A) 0 %; Eosinophils # (A) 0.2 k/uL (0-0.7); Eosinophils % (A) 2 %; HCT 39.9 % (34.0-46.0); HGB 12.6 gm/dL (11.4-16.0); Lymphocytes # (A) 1.8 k/uL (1.0-4.8); Lymphocytes % (A) 18 %; MCH 27.8 pg (25.0-35.0); MCHC 31.5 g/dL (31.0-37.0); MCV 88.2 fL (80.0-100.0); Mean Platelet Volume 8.2; Monocytes # (A) 0.8 k/uL (0-1.0); Monocytes % (A) 8 %; Neutrophils # (A) 7.4 k/uL (1.3-7.7); Neutrophils % (A) 71 %; Platelet Count 161 k/uL (150-450); RBC 4.52 m/uL (3.80-5.40); RDW 14.2 % (11.5-15.5); WBC 10.3 k/uL (3.8-10.6)
--- NOTE | 2024-06-28 17:29 | XR ---
EXAMINATION TYPE: XR chest 1V portable DATE OF EXAM: 06/28/2024 COMPARISON: Chest x-ray January 31, 2019 CLINICAL INDICATION: Female, 78 years old with history of fall; pain TECHNIQUE: Single frontal view of the chest is obtained. FINDINGS: Persistent mild cardiomegaly with atherosclerotic thoracic aorta. More prominent increased interstitial markings bilaterally. The osseous structures are intact. IMPRESSION: Cardiomegaly with bilateral interstitial edema and/or fibrosis. Correlate to exclude CHF exacerbation. [facility], , 06/28/2024 5:26 PM
[2024-06-28 17:32] LABS: ALT 27 U/L (4-34); AST 34 U/L (14-36); African American GFR (CKD) 71 (>60 ml/min/1.73 sqM); Albumin 3.7 g/dL (3.5-5.0); Alkaline Phosphatase 129 U/L (38-126); Anion Gap 9 mmol/L; Blood Urea Nitrogen 25 mg/dL (7-17); Calcium 9.4 mg/dL (8.4-10.2); Carbon Dioxide 22 mmol/L (22-30); Chloride 101 mmol/L (98-107); Glucose 237 mg/dL (74-99); Magnesium 1.8 mg/dL (1.6-2.3); Non-African American GFR(CKD) 61 (>60 ml/min/1.73 sqM); Potassium 4.6 mmol/L (3.5-5.1); Sodium 132 mmol/L (137-145); Total Bilirubin 0.6 mg/dL (0.2-1.3); Total Protein 7.4 g/dL (6.3-8.2)
--- NOTE | 2024-06-28 17:32 | XR ---
EXAMINATION TYPE: XR Hip RT and AP Pelvis, XR femur RT DATE OF EXAM: 06/28/2024 CLINICAL INDICATION: Female, 78 years old with history of fall, pain, hip pain. TECHNIQUE: A single AP view of the pelvis is obtained. Two views of the right hip and femur are obtai nii. COMPARISON: None. FINDINGS: There is no acute fracture/dislocation evident in the pelvis or right hip. The sacroiliac joints rashid ear symmetric and unremarkable. Pubic symphysis is intact. Mild to moderate narrowing and acetabular spurring of both hips is seen. There is surgical change from right knee arthroplasty along with surgical change in distal femur thro ugh fracture of distal femoral metaphysis. There is lucency with medial and posterior callus formatio n. Lucency extends through the callus suggesting there may be an acute component. Clinical correlatio n advised. No prior radiographs for comparison at this institution. IMPRESSION: As above. [facility], , 06/28/2024 5:30 PM
--- NOTE | 2024-06-28 19:10 | CT ---
EXAMINATION TYPE: CT lower extremity RT wo con DATE OF EXAM: 06/28/2024 COMPARISON: Pelvic lung with right hip and femur x-rays earlier today. CLINICAL INDICATION: Female, 78 years old with history of fall, pain. scan through knee; PHH, Fall, R t hip and knee pain. CT DLP: 1196.4 mGycm Automated exposure control for dose reduction was used. FINDINGS: Seen better on CT versus x-ray there is acute comminuted nondisplaced fracture through the greater tr ochanter of the right hip. There is moderate size adjacent right lateral deep soft tissue infection o r hematoma noted measuring 5.2 x 2.1 cm axial image 51 x 4.9 cm craniocaudal dimension coronal image 43 Other findings are similar to radiographs. There is metallic hardware from total right knee arthropla sty. There is lateral fixating plate in the distal femur. There is callus formation along the medial aspect of the distal femoral metaphysis with linear lucency extending through the distal femur and ca llus. Incidental note is made of posterior medial arterial vascular calcification in the right lower extrem ity. Colonic diverticulosis is present most prominently involving visualized portion of the sigmoid c olon. Uterus is surgically absent or markedly atrophic. IMPRESSION: THERE IS ACUTE COMMINUTED NONDISPLACED FRACTURE THROUGH THE GREATER TROCHANTER OF THE RIGHT HIP SEEN BETTER ON CT VERSUS X-RAYS. [facility], , 06/28/2024 7:08 PM
[2024-06-28 19:42] LABS: Appearance,Urine Cloudy (Clear); Bacteria,Urine Many /hpf; Bilirubin,Urine Negative (Negative); Blood,Urine Trace (Negative); Budding Yeast,Urine Occasional /hpf; Color,Urine Yellow; Glucose,Urine (UA) 3+ (Negative); Hyaline Casts,Urine 1 /lpf (0-2); Ketones,Urine Negative (Negative); Leukocyte Esterase,Urine Large (Negative); Nitrite,Urine Negative (Negative); Protein,Urine 2+ (Negative); RBC,Urine 1 /hpf (0-5); Specific Gravity,Urine 1.017 (1.001-1.035); Squamous Epithelial Cell,Urine 1 /hpf (0-4); Urobilinogen,Urine <2.0 mg/dL (<2.0); WBC,Urine >182 /hpf (0-5)
[2024-06-28] MEDS ORDERED: NALOXONE 0.4 MG/ML 1 ML VIAL IV PRN (19:52)
[2024-06-28] MEDS ORDERED: ONDANSETRON 4 MG/2 ML VIAL IVP PRN (19:52)
--- NOTE | 2024-06-28 19:58 | ED ---
General Adult HPI - General Chief complaint: Extremity Injury, Lower Stated complaint: rt leg pain,fall Time Seen by Provider: 06/28/24 16:46 Source: patient, EMS, RN notes reviewed, old records reviewed Mode of arrival: EMS Limitations: no limitations - History of Present Illness Initial comments: Patient is a 78-year-old female presents emergency department after fall at home. Tripped over blue covering that was on the floor at home where she is having a floor redone. Did not faint or lose consciousness. Is on Plavix but did not hit her head. States she landed fully on her right hip. Unable to bear weight since the injury this morning. Presents for further evaluation at this time. Has a history of CAD, COPD, diabetes, hypertension, hyperlipidemia. Denies any chest pain or shortness of breath. Denies hitting her head or loss consciousness. Denies any spine pain. Only pain is over the right hip as well as right femur. States it does radiate into her groin. Vital signs within acceptable limits. Presents for further evaluation at this time. - Related Data Home Medications Medication Instructions Recorded Confirmed Atorvastatin [Lipitor] 40 mg PO DAILY 03/13/16 06/28/24 lamoTRIgine [LaMICtal] 200 mg PO HS 03/13/16 06/28/24 DULoxetine HCL [Cymbalta] 60 mg PO DAILY 01/31/19 06/28/24 Donepezil [Aricept] 10 mg PO DAILY 01/31/19 06/28/24 sitaGLIPtin [Januvia] 100 mg PO DAILY 01/31/19 06/28/24 Metoprolol Succinate (ER) [Toprol 50 mg PO DAILY 03/15/20 06/28/24 Xl] Acetaminophen Tab [Tylenol Tab] 1,000 mg PO Q6HR PRN 06/28/24 06/28/24 Acetaminophen/Diphenhydramine 2 tab PO HS PRN 06/28/24 06/28/24 [Tylenol PM 500-25mg] Coconut Tabs(Otc) 2 tab PO BID 06/28/24 06/28/24 Cranberry(Unknown Dose) 2 tab PO DAILY 06/28/24 06/28/24 Famotidine 20 mg PO DAILY 06/28/24 06/28/24 INSULIN LISPRO (HumaLOG) [HumaLOG] 10 units SQ AC-TID 06/28/24 06/28/24 Insulin Glargine,Hum.rec.anlog 10 units SQ HS 06/28/24 06/28/24 [Lantus Solostar Pen] Insulin Glargine,Hum.rec.anlog 15 units SQ DAILY 06/28/24 06/28/24 [Lantus Solostar Pen] lisinopriL [Zestril] 5 mg PO DAILY 06/28/24 06/28/24 rOPINIRole HCL [Requip] 0.25 mg PO HS 06/28/24 06/28/24 risperiDONE [RisperDAL] 1 mg PO HS 06/28/24 06/28/24 Previous Rx's Medication Instructions Recorded Clopidogrel [Plavix] 75 mg PO DAILY #90 tab 02/04/19 Isosorbide Mononitrate ER [Imdur] 60 mg PO DAILY tab.er.24h 02/04/19 Allergies Allergy/AdvReac Type Severity Reaction Status Date / Time No Known Allergies Allergy Verified 06/28/24 18:45 Review of Systems ROS Statement: Those systems with pertinent positive or pertinent negative responses have been documented in the HPI. Review of Systems: CONST: Denies fever EYES: Denies blurry vision ENT: Denies nasal congestion C/V: Denies Chest pain RESP: Denies shortness of breath GI: Denies abdominal pain : Denies dysuria SKIN: Denies rash. MSK: Endorses right hip pain NEURO: Denies headache ROS Other: All systems not noted in ROS Statement are negative. Past Medical History Past Medical History: Coronary Artery Disease (CAD), Chest Pain / Angina, COPD, Diabetes Mellitus, GERD/Reflux, Hyperlipidemia, Hypertension Additional Past Medical History / Comment(s): gastritis, diverticulitis History of Any Multi-Drug Resistant Organisms: None Reported Past Surgical History: Heart Catheterization With Stent, Hysterectomy, Orthopedic Surgery Additional Past Surgical History / Comment(s): Right knee replacement. Past Anesthesia/Blood Transfusion Reactions: No Reported Reaction Date of Last Stent Placement:: unknown Past Psychological History: Depression Smoking Status: Former smoker Past Alcohol Use History: Occasional Past Drug Use History: None Reported - Past Family History Father Family Medical History: Cancer, CVA/TIA Mother Family Medical History: Cancer, Myocardial Infarction ([place]) General Exam - General Exam Comments Initial Comments: General: Appears in no acute distress. HEAD: Normal with no signs of head trauma. Negative Laurent sign. Negative raccoon eyes. EYES: PERRLA, EOMI, conjunctiva normal, no discharge. Pupils 3 mm and equal bilaterally. ENT: Hearing grossly intact, normal oropharynx. RESPIRATORY: Clear breath sounds bilaterally. No wheezes, rales, or rhonchi. C/V: Regular rate and rhythm. S1 and S2 auscultated, no edema, peripheral pulses 2+ and intact throughout ABD: Abd is soft, nontender, nondistended EXT: Pelvis is stable. Patient has tenderness to palpation of the right hip and right proximal femur. No gross abnormality present. No midline cervical, thoracic, lumbar spine tenderness to palpation. SKIN: No rashes or lesions observed on exposed skin. NEURO: Alert and oriented x 4. Cranial nerves II-XII intact. No focal sensory or strength deficits. GCS 15. Decreased range of motion of the right lower extremity secondary to pain in the right hip. Limitations: no limitations Course Vital Signs 06/28/24 06/28/24 06/28/24 16:47 19:00 20:50 Temperature 99.6 F 98.2 F Pulse Rate 86 66 68 Respiratory 18 16 17 Rate Blood Pressure 171/82 131/64 135/76 O2 Sat by Pulse 100 98 96 Oximetry Medical Decision Making - Medical Decision Making Was pt. sent in by a medical professional or institution (, PA, LABOR RELATIONS SUPERVISOR, urgent care, hospital, or retirement...) When possible be specific @ -No Did you speak to anyone other than the patient for history (EMS, parent, family, police, friend...)? What history was obtained from this source @ -No Did you review nursing and triage notes (agree or disagree)? Why? @ -I reviewed and agree with nursing and triage notes Were old charts reviewed (outside hosp., previous admission, EMS record, old EKG, old radiological studies, urgent care reports/EKG's, retirement records)? Report findings @ -No old charts were reviewed Differential Diagnosis (chest pain, altered mental status, abdominal pain women, abdominal pain men, vaginal bleeding, weakness, fever, dyspnea, syncope, headache, dizziness, GI bleed, back pain, seizure, CVA, palpatations, mental health, musculoskeletal)? @ -Differential Musculoskeletal Muscular strain, contusion, ligament sprain, fracture, arthritis, septic arthritis, bursitis, cellulitis, muscle spasm, nerve compression, DVT, arterial occlusion, herpes zoster, electrolyte abnormality, tumor.... This is not meant to be in all inclusive list EKG interpreted by me (3pts min.). @ -As above X-rays interpreted by me (1pt min.). @ -Chest x-ray shows no obvious acute cardiopulmonary process. Femur and hip and pelvis x-ray negative for any obvious acute process. Possible distal femur issue. CT interpreted by me (1pt min.). @ -CT right lower extremity does show a right-sided greater trochanteric fracture that is nondisplaced U/S interpreted by me (1pt. min.). @ -None done What testing was considered but not performed or refused? (CT, X-rays, U/S, labs)? Why? @ -None What meds were considered but not given or refused? Why? @ -None Did you discuss the management of the patient with other professionals (terence ahumada i.e. , PA, LABOR RELATIONS SUPERVISOR, lab, RT, psych nurse, social media marketing manager, mill hand plate mill, teacher, chief lifestyle officer, caseworker)? Give summary @ -Discussed with Dr. June, on-call orthopedics who accepted the admission. Requested patient be made n.p.o. after midnight. Discussed with the consulting medicine team, Dr. Kuhn who accepted consult. Was smoking cessation discussed for >3mins.? @ -No Was critical care preformed (if so, how long)? @ -No Were there social determinants of health that impacted care today? How? (Homelessness, low income, unemployed, alcoholism, drug addiction, transportation, low edu. Level, literacy, decrease access to med. care, care home, rehab)? @ -No Was there de-escalation of care discussed even if they declined (Discuss DNR or withdrawal of care, Hospice)? DNR status @ -No What co-morbidities impacted this encounter? (DM, HTN, Smoking, COPD, CAD, Cancer, CVA, ARF, Chemo, Hep., AIDS, mental health diagnosis, sleep apnea, morbid obesity)? @ -None Was patient admitted / discharged? Hospital course, mention meds given and route, prescriptions, significant lab abnormalities, going to OR and other pertinent info. @ -Patient presents for mechanical fall. Is on Plavix however patient did not strike her head. Does not meet criteria for trauma activation and does not meet criteria for code coag. We obtained x-rays of the chest and pelvis and right hip and leg. She was in agreement this plan. Basic labs will be obtained as well as screening EKG. Patient will be symptomatically treated with Tylenol. She declines any additional medications at this time. Vitals within acceptable limits. Imaging returned relatively unremarkable with possible distal femur issue however inconclusive. We will obtain CT imaging of the right lower extremity. Labs returned unremarkable as well. Urine still pending at time of admission. Discussed the case with the on-call orthopedic surgeon, Dr. June who accepted the admission. I spoke with the consulting medicine team, Dr. Kuhn who accepted the consult. After patient was admitted, does show patient has a UTI. Patient was started on IV antibiotics. Dr. June, admitting physician saw this before I and started the antibiotics. Undiagnosed new problem with uncertain prognosis? @ -No Drug Therapy requiring intensive monitoring for toxicity (Heparin, Nitro, Insulin, Cardizem)? @ -No Were any procedures done? @ -No Diagnosis/symptom? @ -Right greater trochanteric fracture, UTI Acute, or Chronic, or Acute on Chronic? @ -Acute Uncomplicated (without systemic symptoms) or Complicated (systemic symptoms)? @ -Complicated Side effects of treatment? @ -No Exacerbation, Progression, or Severe Exacerbation? @ -No Poses a threat to life or bodily function? How? (Chest pain, [place], [place], pneumonia, PE, COPD, DKA, ARF, appy, cholecystitis, CVA, Diverticulitis, Homicidal, Suicidal, threat to staff... and all critical care pts) @ -Yes - Lab Data Result diagrams: 06/28/24 17:03 06/28/24 17:03 Lab Results 06/28/24 06/28/24 06/28/24 Range/Units 17:03 17:03 19:19 WBC 10.3 (3.8-10.6) k/uL RBC 4.52 (3.80-5.40) m/uL Hgb 12.6 (11.4-16.0) gm/dL Hct 39.9 (34.0-46.0) % MCV 88.2 (80.0-100.0) fL MCH 27.8 (25.0-35.0) pg MCHC 31.5 (31.0-37.0) g/dL RDW 14.2 (11.5-15.5) % Plt Count 161 (150-450) k/uL MPV 8.2 Neutrophils % 71 % Lymphocytes % 18 % Monocytes % 8 % Eosinophils % 2 % Basophils % 0 % Neutrophils # 7.4 (1.3-7.7) k/uL Lymphocytes # 1.8 (1.0-4.8) k/uL Monocytes # 0.8 (0-1.0) k/uL Eosinophils # 0.2 (0-0.7) k/uL Basophils # 0.0 (0-0.2) k/uL Sodium 132 L (137-145) mmol/L Potassium 4.6 (3.5-5.1) mmol/L Chloride 101 (98-107) mmol/L Carbon Dioxide 22 (22-30) mmol/L Anion Gap 9 mmol/L BUN 25 H (7-17) mg/dL Creatinine 0.90 (0.52-1.04) mg/dL Est GFR (CKD-EPI)AfAm 71 (>60 ml/min/1.73 sqM) Est GFR (CKD-EPI)NonAf 61 (>60 ml/min/1.73 sqM) Glucose 237 H (74-99) mg/dL Calcium 9.4 (8.4-10.2) mg/dL Magnesium 1.8 (1.6-2.3) mg/dL Total Bilirubin 0.6 (0.2-1.3) mg/dL AST 34 (14-36) U/L ALT 27 (4-34) U/L Alkaline Phosphatase 129 H (38-126) U/L Total Protein 7.4 (6.3-8.2) g/dL Albumin 3.7 (3.5-5.0) g/dL Urine Color Yellow Urine Appearance Cloudy H (Clear) Urine pH 6.0 (5.0-8.0) Ur Specific [place] 1.017 (1.001-1.035) Urine Protein 2+ H (Negative) Urine Glucose (UA) 3+ H (Negative) Urine Ketones Negative (Negative) Urine Blood Trace H (Negative) Urine Nitrite Negative (Negative) Urine Bilirubin Negative (Negative) Urine Urobilinogen <2.0 (<2.0) mg/dL Ur Leukocyte Esterase Large H (Negative) Urine RBC 1 (0-5) /hpf Urine WBC >182 H (0-5) /hpf Ur Squamous Epith Cells 1 (0-4) /hpf Urine Bacteria Many H (None) /hpf Hyaline Casts 1 (0-2) /lpf Urine Yeast (Budding) Occasional H (None) /hpf - EKG Data -: EKG Interpreted by Me EKG Comments: 12-lead Electrocardiogram Interpretation Note EKG was reviewed and interpreted by myself. 12-lead ECG performed at 1656 is interpreted by me as revealing normal sinus rhythm at a rate of 88 beats per minute. Left axis deviation with left bundle branch block. [place] interval is 157 ms, QRS durations 136 ms, QTc is 442 ms.. There were no ST or T wave abnormalities to suggest myocardial ischemia or injury. R wave progression across the precordium was satisfactory. By my interpretation this EKG is non-diagnostic for acute ischemia. Disposition Clinical Impression: Greater trochanter fracture, UTI (urinary tract infection) Disposition: ADMITTED IP TO THIS HOSP Condition: Stable Time of Disposition: 19:35
[2024-06-28 20:21] LABS: Partial Thromboplastin Time 26.9 sec (22.0-30.0); Prothrombin Time 11.4 sec (10.0-12.5)
[2024-06-28] MEDS: SODIUM CHLORIDE 0.9% 1,000 ML IV SCH (20:30)
[2024-06-28 20:55] LABS: Glucose,Whole Blood 288 mg/dL (70-110)
[2024-06-28 21:56] LABS: Glucose,Whole Blood 317 mg/dL (70-110)
--- NOTE | 2024-06-28 22:19 | P.CONS ---
History of Present Illness - Reason for Consult Consult date: 06/28/24 pre-op - History of Present Illness Patient is a 78-year-old female with insulin-dependent diabetes mellitus, CAD s/p stent, COPD no home oxygen, GERD presenting with right-sided hip pain due to fall at home. Patient states that at home she is having her floors redone. She tripped over a blue mat that was covering the floors. Denies landing on her head or losing consciousness. Says she fully landed on her right hip. And found it difficult to bear weight. She walks with no assistive device. Pain radiates to groin and right knee. Denies any back pain. Admits is urinary frequency that has been going on for the past month. Denies any dysuria. Patient denies any fever, chills, chest pain, shortness of breath, abdominal pain. CXR independently interpreted displaying cardiomegaly Femur x-ray displaying no acute fracture/dislocation in the pelvis or right hip Lower extremity CT displaying acute nondisplaced fracture through the greater trochanter of the right hip Pertinent positives and negatives as discussed above, a complete review of systems was performed and all other systems are negative. Vitals: Signs Reviewed Physical Exam: General: nontoxic, no distress, appears at stated age Derm: warm, dry, intact Head: atraumatic, normocephalic, symmetric Eyes: EOMI, anicteric sclera Mouth: no lip lesion, mucus membranes moist Cardiovascular: S1 S2 reg, no murmur, rubs, or gallops Lungs: CTA bilateral, no rhonchi, no rales, no accessory muscle use Abdominal: soft, non-tender to palpataion, no appreciable organomegaly Extremities: no gross muscle atrophy, no edema, no contractures, right hip tenderness to palpation Neuro: Alert, Oriented, CNII-XII grossly intact, gait normal Psych: well appearing, appropriate affect Assessment and Plan: #. Mild hyponatremia #. Elevated BUN Sodium 132, BUN 25 Likely in the setting of dehydration Normal saline at 70 cc an hour #. Insulin-dependent diabetes mellitus #. Hyperglycemia Glucose 237 start Humalog insulin sliding scale SQ resume after surgery Humalog 10 units SQ AC TID Lantus 10 units SQ at bedtime, hold morning lantus 15 units SQ in AM on day of surgery Accu-Cheks ACHS Monitor for hypoglycemia Hold oral antidiabetic medication #. Urinary tract infection Positive UA Cefazolin IVPB every 8 hours #. Nondisplaced right hip fracture DVT prophylaxis, antibiotics, pain management deferred to primary orthopedic service She denies any history of severe COPD. Denies any CHF. Has quit smoking over 20 years ago. No recent hospitalizations w/in the past 2 days. Takes insulin for diabetes and medication for hypertension. NSQIP: Serious complication 8.4% below average risk, 0.5% below average risk, cardiac complication 1.2% below average risk, readmission 10.5% above average risk, sepsis 0.7% below average risk, VTE 1.0% below average risk Patient is medically optimized for surgery. patient mentioned that she had surgery on her right knee 6 months ago , and had a difficult recovery and was told it was due to anasthesia that "stayed longer in your system " she wanted the Anasthesia team to be aware DVT ppx: heparin 5000 units sc tid Code status: FULL CODE Brenda Jimenez MD PGY-1 IM Dictation was produced using [employer] dictation software. please excuse any grammatical, word or spelling errors. I have seen and evaluated the patient today. I Discussed the case with the resident and agree with the resident's findings I edited the assessment and plan as necessary as documented in the resident's note. Past Medical History Past Medical History: Coronary Artery Disease (CAD), Chest Pain / Angina, COPD, Diabetes Mellitus, GERD/Reflux, Hyperlipidemia, Hypertension Additional Past Medical History / Comment(s): gastritis, diverticulitis History of Any Multi-Drug Resistant Organisms: None Reported Past Surgical History: Heart Catheterization With Stent, Hysterectomy, Orthopedic Surgery Additional Past Surgical History / Comment(s): Right knee replacement. Past Anesthesia/Blood Transfusion Reactions: No Reported Reaction Date of Last Stent Placement:: unknown Past Psychological History: Depression Smoking Status: Former smoker Past Alcohol Use History: Occasional Past Drug Use History: None Reported - Past Family History Father Family Medical History: Cancer, CVA/TIA Mother Family Medical History: Cancer, Myocardial Infarction ([place]) Medications and Allergies Home Medications Medication Instructions Recorded Confirmed Type Atorvastatin [Lipitor] 40 mg PO DAILY 03/13/16 06/28/24 History lamoTRIgine [LaMICtal] 200 mg PO HS 03/13/16 06/28/24 History DULoxetine HCL [Cymbalta] 60 mg PO DAILY 01/31/19 06/28/24 History Donepezil [Aricept] 10 mg PO DAILY 01/31/19 06/28/24 History sitaGLIPtin [Januvia] 100 mg PO DAILY 01/31/19 06/28/24 History Clopidogrel [Plavix] 75 mg PO DAILY #90 tab 02/04/19 06/28/24 Rx Isosorbide Mononitrate ER [Imdur] 60 mg PO DAILY tab.er.24h 02/04/19 06/28/24 Rx Metoprolol Succinate (ER) [Toprol 50 mg PO DAILY 03/15/20 06/28/24 History Xl] Acetaminophen Tab [Tylenol Tab] 1,000 mg PO Q6HR PRN 06/28/24 06/28/24 History Acetaminophen/Diphenhydramine 2 tab PO HS PRN 06/28/24 06/28/24 History [Tylenol PM 500-25mg] Coconut Tabs(Otc) 2 tab PO BID 06/28/24 06/28/24 History Cranberry(Unknown Dose) 2 tab PO DAILY 06/28/24 06/28/24 History Famotidine 20 mg PO DAILY 06/28/24 06/28/24 History INSULIN LISPRO (HumaLOG) [HumaLOG] 10 units SQ AC-TID 06/28/24 06/28/24 History Insulin Glargine,Hum.rec.anlog 10 units SQ HS 06/28/24 06/28/24 History [Lantus Solostar Pen] Insulin Glargine,Hum.rec.anlog 15 units SQ DAILY 06/28/24 06/28/24 History [Lantus Solostar Pen] lisinopriL [Zestril] 5 mg PO DAILY 06/28/24 06/28/24 History rOPINIRole HCL [Requip] 0.25 mg PO HS 06/28/24 06/28/24 History risperiDONE [RisperDAL] 1 mg PO HS 06/28/24 06/28/24 History Allergies Allergy/AdvReac Type Severity Reaction Status Date / Time No Known Allergies Allergy Verified 06/28/24 18:45 Physical Exam Vitals: Vital Signs Temp Pulse Resp BP Pulse Ox 06/28/24 16:47 99.6 F 86 18 171/82 100 Intake and Output 06/28/24 06/28/24 06/28/24 06:59 14:59 22:59 Other: Weight 56.699 kg Results CBC & Chem 7: 06/28/24 17:03 06/28/24 17:03 Labs: Abnormal Lab Results - Last 24 Hours (Table) 06/28/24 06/28/24 Range/Units 17:03 19:19 Sodium 132 L (137-145) mmol/L BUN 25 H (7-17) mg/dL Glucose 237 H (74-99) mg/dL Alkaline Phosphatase 129 H (38-126) U/L Urine Appearance Cloudy H (Clear) Urine Protein 2+ H (Negative) Urine Glucose (UA) 3+ H (Negative) Urine Blood Trace H (Negative) Ur Leukocyte Esterase Large H (Negative) Urine WBC >182 H (0-5) /hpf Urine Bacteria Many H (None) /hpf Urine Yeast (Budding) Occasional H (None) /hpf
[2024-06-28] MEDS: INSULIN GLARGINE (LANTUS) 100 UNIT/ML SYR SQ SCH (22:23)
[2024-06-28] MEDS: INSULIN LISPRO (HumaLOG) 100 UNIT/ML 10 mL VL SQ SCH (22:24)
[2024-06-29] MEDS: HEPARIN SODIUM,PORCINE 5,000 UNIT/ML 1 ML VIAL SQ SCH (00:21)
[2024-06-29] MEDS: risperiDONE 1 MG TAB PO SCH (00:25)
[2024-06-29] MEDS: lamoTRIgine 100 MG TAB PO SCH (00:26)
[2024-06-29] MEDS: ACETAMINOPHEN TAB 325 MG TAB PO PRN (00:26)
[2024-06-29 06:25] LABS: Glucose,Whole Blood 165 mg/dL (70-110)
[2024-06-29] MEDS ORDERED: INSULIN GLARGINE (LANTUS) 100 UNIT/ML SYR SQ SCH (07:00)
[2024-06-29] MEDS ORDERED: INSULIN LISPRO (HumaLOG) 100 UNIT/ML 10 mL VL SQ SCH (07:30)
[2024-06-29] MEDS: ATORVASTATIN 40 MG TAB PO SCH (07:47)
[2024-06-29] MEDS: FAMOTIDINE 20 MG TAB PO SCH (07:47)
[2024-06-29] MEDS: DULoxetine HCL 60 MG CAPSULE.DR PO SCH (07:47)
[2024-06-29] MEDS: DONEPEZIL 10 MG TAB PO SCH (07:47)
[2024-06-29 08:30] LABS: BUN/Creat Ratio 19.62 Ratio (12.00-20.00); Blood Urea Nitrogen 25.5 mg/dL (9.0-27.0); Carbon Dioxide 24.1 mmol/L (21.6-31.8); Chloride 103 mmol/L (96-109); Glucose 160 mg/dL (70-110); Potassium 4.2 mmol/L (3.5-5.5); Sodium 137 mmol/L (135-145)
[2024-06-29 08:31] LABS: ALT 21 U/L (8-44); AST 23 U/L (13-35); Albumin 3.2 g/dL (3.8-4.9); Albumin/Globulin Ratio 1.07 Ratio (1.60-3.17); Alkaline Phosphatase 95 U/L (41-126); Calcium 8.7 mg/dL (8.7-10.3); Total Bilirubin 0.3 mg/dL (0.3-1.2); Total Protein 6.2 g/dL (6.2-8.2)
[2024-06-29 08:48] LABS: Basophils # (A) 0.03 X 10*3/uL (0.00-0.10); Basophils % (A) 0.4 %; Eosinophils # (A) 0.55 X 10*3/uL (0.04-0.35); Eosinophils % (A) 6.9 %; HCT 35.2 % (37.2-46.3); HGB 11.3 g/dL (12.0-15.0); Lymphocytes # (A) 1.71 X 10*3/uL (0.90-5.00); Lymphocytes % (A) 21.4 %; MCH 28.5 pg (27.0-32.0); MCHC 32.1 g/dL (32.0-37.0); MCV 88.7 FL (80.0-97.0); Mean Platelet Volume 11.3 FL (9.5-12.2); Monocytes # (A) 0.98 X 10*3/uL (0.20-1.00); Monocytes % (A) 12.3 %; NRBC Per 100 WBC 0 X 10*3/uL (0.00-0.01); Neutrophils # (A) 4.69 X 10*3/uL (1.80-7.70); Neutrophils % (A) 58.7 %; Platelet Count 153 X 10*3/uL (140-440); RBC 3.97 X 10*6/uL (4.10-5.20); WBC 7.98 X 10*3/uL (4.50-10.00)
[2024-06-29] MEDS: METOPROLOL SUCCINATE (ER) 50 MG TAB.ER.24H PO SCH (10:06)
--- NOTE | 2024-06-29 10:07 | P.HPOR ---
History of Present Illness H&P Date: 06/29/24 Chief Complaint: Right hip pain and inability to ambulate due to hip Patient is a very pleasant 78-year-old female who is seen examined the bedside for further evaluation of her right hip. She sustained a fall yesterday when she slipped on the kitchen floor landing on her right hip. She has had right hip pain since that time and has been unable to ambulate. She was brought to [facility] for further evaluation. Right hip x-ray and CT imaging was performed. She was found to have a right greater trochanter hip fracture. Patient does have a history of right total knee arthroplasty. She also sustained a periprosthetic fracture requiring surgical intervention at her right femur. She states he is surgical interventions were performed in [place], [place]. Her last surgery was 6 months ago. Patient is not complaining of any pain at her knee. Her pain is specifically at her right hip. Her pain is controlled at rest. She is admitted to our service. She is being seen and examined by medicine. She needs clearance prior to surgical intervention. Patient is on Plavix. Her last Plavix dose was yesterday, 06/28/2024, at 10 AM. Nursing states patient has been cleared for surgical intervention today by medicine. Patient's other medical diagnoses include insulin-dependent diabetes mellitus, CAD status post stent, and COPD. Past Medical History Past Medical History: Coronary Artery Disease (CAD), Chest Pain / Angina, COPD, Diabetes Mellitus, GERD/Reflux, Hyperlipidemia, Hypertension Additional Past Medical History / Comment(s): gastritis, diverticulitis History of Any Multi-Drug Resistant Organisms: None Reported Past Surgical History: Heart Catheterization With Stent, Hysterectomy, Orthopedic Surgery Additional Past Surgical History / Comment(s): Right knee replacement. Past Anesthesia/Blood Transfusion Reactions: No Reported Reaction Date of Last Stent Placement:: unknown Past Psychological History: Depression Smoking Status: Former smoker Past Alcohol Use History: Occasional Past Drug Use History: None Reported - Past Family History Father Family Medical History: Cancer, CVA/TIA Mother Family Medical History: Cancer, Myocardial Infarction ([place]) Medications and Allergies Home Medications Medication Instructions Recorded Confirmed Type Atorvastatin [Lipitor] 40 mg PO DAILY 03/13/16 06/28/24 History lamoTRIgine [LaMICtal] 200 mg PO HS 03/13/16 06/28/24 History DULoxetine HCL [Cymbalta] 60 mg PO DAILY 01/31/19 06/28/24 History Donepezil [Aricept] 10 mg PO DAILY 01/31/19 06/28/24 History sitaGLIPtin [Januvia] 100 mg PO DAILY 01/31/19 06/28/24 History Clopidogrel [Plavix] 75 mg PO DAILY #90 tab 02/04/19 06/28/24 Rx Isosorbide Mononitrate ER [Imdur] 60 mg PO DAILY tab.er.24h 02/04/19 06/28/24 Rx Metoprolol Succinate (ER) [Toprol 50 mg PO DAILY 03/15/20 06/28/24 History Xl] Acetaminophen Tab [Tylenol Tab] 1,000 mg PO Q6HR PRN 06/28/24 06/28/24 History Acetaminophen/Diphenhydramine 2 tab PO HS PRN 06/28/24 06/28/24 History [Tylenol PM 500-25mg] Coconut Tabs(Otc) 2 tab PO BID 06/28/24 06/28/24 History Cranberry(Unknown Dose) 2 tab PO DAILY 06/28/24 06/28/24 History Famotidine 20 mg PO DAILY 06/28/24 06/28/24 History INSULIN LISPRO (HumaLOG) [HumaLOG] 10 units SQ AC-TID 06/28/24 06/28/24 History Insulin Glargine,Hum.rec.anlog 10 units SQ HS 06/28/24 06/28/24 History [Lantus Solostar Pen] Insulin Glargine,Hum.rec.anlog 15 units SQ DAILY 06/28/24 06/28/24 History [Lantus Solostar Pen] lisinopriL [Zestril] 5 mg PO DAILY 06/28/24 06/28/24 History rOPINIRole HCL [Requip] 0.25 mg PO HS 06/28/24 06/28/24 History risperiDONE [RisperDAL] 1 mg PO HS 06/28/24 06/28/24 History Allergies Allergy/AdvReac Type Severity Reaction Status Date / Time No Known Allergies Allergy Verified 06/28/24 18:45 Physical Examination Physical exam: Patient is awake, alert, and oriented 3 Vital signs stable Good chest excursion with deep inspiration and expiration Mild pain with palpation of the right hip Significant pain with internal and external rotation of the right hip No pain with internal and external rotation of the left hip No pain with palpation or movement towards the right knee with varus and valgus stress Evidence of well-healed incisions over the right anterior knee and lateral knee Neurovascularly intact bilateral lower extremities Dorsiflexion, plantarflexion, and extensor hallucis longus positive sustained bi laterally Calves are soft and supple; No signs or symptoms of DVT; No calf pain Results Pertinent studies: Lower extremity CT taken on 06/28/2024: Acute comminuted nondisplaced fracture through the greater trochanter of the right hip; metallic hardware from right total knee arthroplasty intact with lateral fixating plate of the distal femur with callus formation along the medial aspect of the distal femoral metaphysis with linear lucency extending through the distal femur and callus Right hip, right femur and pelvis x-ray taken on 06/28/2024: Intertrochanteric hip fracture is not identified at the right hip; evidence of right total knee arthroplasty with retained hardware with evidence of hardware at the distal femur due to fracture at the distal femoral metaphysis - Labs Labs: Abnormal Lab Results - Last 24 Hours (Table) 06/28/24 06/28/24 06/28/24 Range/Units 17:03 19:19 20:53 RBC (4.10-5.20) X 10*6/uL Hgb (12.0-15.0) g/dL Hct (37.2-46.3) % Eosinophils # (0.04-0.35) X 10*3/uL Sodium 132 L (137-145) mmol/L BUN 25 H (7-17) mg/dL Est GFR (CKD-EPI) (>=60) Glucose 237 H (74-99) mg/dL POC Glucose (mg/dL) 288 H (70-110) mg/dL Alkaline Phosphatase 129 H (38-126) U/L Albumin (3.8-4.9) g/dL Albumin/Globulin Ratio (1.60-3.17) Ratio Urine Appearance Cloudy H (Clear) Urine Protein 2+ H (Negative) Urine Glucose (UA) 3+ H (Negative) Urine Blood Trace H (Negative) Ur Leukocyte Esterase Large H (Negative) Urine WBC >182 H (0-5) /hpf Urine Bacteria Many H (None) /hpf Urine Yeast (Budding) Occasional H (None) /hpf 06/28/24 06/29/24 06/29/24 Range/Units 21:54 04:33 04:33 RBC 3.97 L (4.10-5.20) X 10*6/uL Hgb 11.3 L (12.0-15.0) g/dL Hct 35.2 L (37.2-46.3) % Eosinophils # 0.55 H (0.04-0.35) X 10*3/uL Sodium (137-145) mmol/L BUN (7-17) mg/dL Est GFR (CKD-EPI) 42 L (>=60) Glucose 160 H (74-99) mg/dL POC Glucose (mg/dL) 317 H (70-110) mg/dL Alkaline Phosphatase (38-126) U/L Albumin 3.2 L (3.8-4.9) g/dL Albumin/Globulin Ratio 1.07 L (1.60-3.17) Ratio Urine Appearance (Clear) Urine Protein (Negative) Urine Glucose (UA) (Negative) Urine Blood (Negative) Ur Leukocyte Esterase (Negative) Urine WBC (0-5) /hpf Urine Bacteria (None) /hpf Urine Yeast (Budding) (None) /hpf 06/29/24 Range/Units 06:23 RBC (4.10-5.20) X 10*6/uL Hgb (12.0-15.0) g/dL Hct (37.2-46.3) % Eosinophils # (0.04-0.35) X 10*3/uL Sodium (137-145) mmol/L BUN (7-17) mg/dL Est GFR (CKD-EPI) (>=60) Glucose (74-99) mg/dL POC Glucose (mg/dL) 165 H (70-110) mg/dL Alkaline Phosphatase (38-126) U/L Albumin (3.8-4.9) g/dL Albumin/Globulin Ratio (1.60-3.17) Ratio Urine Appearance (Clear) Urine Protein (Negative) Urine Glucose (UA) (Negative) Urine Blood (Negative) Ur Leukocyte Esterase (Negative) Urine WBC (0-5) /hpf Urine Bacteria (None) /hpf Urine Yeast (Budding) (None) /hpf H & H 06/28/24 06/29/24 Range/Units 17:03 04:33 Hgb 12.6 11.3 L (11.4-16.0) gm/dL Hct 39.9 35.2 L (34.0-46.0) % Coagulation 06/28/24 Range/Units 20:06 INR 1.0 (<1.2) Result Diagrams: 06/29/24 04:33 06/29/24 04:33 Assessment and Plan Assessment: Assessment: Status post fall Inability to ambulate due to right hip Right hip pain Acute comminuted nondisplaced fractures of the greater trochanter of the right hip History of right total knee arthroplasty History of right knee periprosthetic fracture requiring surgical retained hardware Anticoagulation use with Plavix History coronary artery disease with stent Insulin-dependent type 2 diabetes COPD (1) Inability to ambulate due to hip Current Visit: Yes Status: Acute Code(s): R26.2 - DIFFICULTY IN WALKING, NOT ELSEWHERE CLASSIFIED SNOMED Code(s): 846557913 (2) Right hip pain Current Visit: Yes Status: Acute Code(s): M25.551 - PAIN IN RIGHT HIP SNOMED Code(s): 49296033 (3) Status post fall Current Visit: Yes Status: Acute Code(s): Z91.81 - HISTORY OF FALLING SNOMED Code(s): 452771881 (4) CAD (coronary artery disease) Current Visit: Yes Status: Acute Code(s): I25.10 - ATHSCL HEART DISEASE OF [place] CORONARY ARTERY W/O ANG PCTRS SNOMED Code(s): 82029663 (5) Insulin dependent diabetes mellitus Current Visit: Yes Status: Acute Code(s): GYY2107 - SNOMED Code(s): 84829759 (6) History of total right knee replacement Current Visit: Yes Status: Acute Code(s): Z96.651 - PRESENCE OF RIGHT ARTIFICIAL KNEE JOINT SNOMED Code(s): 7240738857764 (7) Periprosthetic fracture around internal prosthetic joint Current Visit: Yes Status: Acute Code(s): M97.9XXA - PERIPROSTH FRACTURE AROUND UNSP INTERNAL PROSTH JOINT, INIT SNOMED Code(s): 467545184 (8) History of heart artery stent Current Visit: Yes Status: Acute Code(s): Z95.5 - PRESENCE OF CORONARY ANGIOPLASTY IMPLANT AND GRAFT SNOMED Code(s): 728272095 (9) Greater trochanter fracture Current Visit: Yes Status: Acute Code(s): S72.113A - DISP FX OF GREATER TROCHANTER OF UNSP FEMUR, INIT SNOMED Code(s): 092779217 (10) COPD (chronic obstructive pulmonary disease) Current Visit: No Status: Acute Code(s): J44.9 - CHRONIC OBSTRUCTIVE PULMONARY DISEASE, UNSPECIFIED SNOMED Code(s): 12872351 Plan: Plan: 1. Patient is status post fall resulting in inability to ambulate due to her right hip and right hip pain. She presented to [facility] for further evaluation. Imaging shows evidence of acute comminuted nondisplaced fractures of the greater trochanter of the right hip. We did discuss surgical intervention provides her the best opportunity have some improvement of her symptoms and the best opportunity to be able to increase her ambulation status postoperatively. Patient is currently n.p.o. in anticipation for surgical intervention today. Patient states she would like to proceed forward with surgical intervention as she also feels it provides her the best opportunity to have some improvement of her symptoms and to increase her mobility and ambulation. I discussed these issues with the patient at length and I answered all of their questions to the best of my ability and the patient understands. I discussed the risk of surgical intervention and alternative treatment options. The risk of surgical intervention was explained to the patient in detail including but not limited to risk of bleeding, risk of infection, risk and need for further surgery, risk of decreased loss of motion of function, malunion, nonunion, hardware failure, nerve damage, paralysis, heart attack, , as well as the fact that surgery may not alleviate her symptoms. I answered all the patient's questions the best of my ability. The patient would like to proceed forward with surgical intervention and will sign informed consent. Patient will remain n.p.o. and on bedrest. She is strict nonweightbearing on the right lower extremity. We will initiate Trejo catheter placement. Currently, we are planning for surgical intervention in the operating room this afternoon, 06/29/2024. We do not see acute fracture at her right knee at the site of her total knee arthroplasty and remained hardware following periprosthetic fracture. She is not complaining of any knee pain. We are not planning for specific treatment for her right distal femur. 2. Patient will continue be seen examined by medicine for her multiple other medical diagnoses. Medicine has cleared the patient for surgical intervention. Time with Patient: Greater than 30 (Including obtaining history, physical examination, reviewing of imaging, and dictation.)
--- NOTE | 2024-06-29 11:17 | P.PN ---
Subjective Progress Note Date: 06/29/24 78-year-old female with insulin-dependent diabetes mellitus, CAD s/p stent, COPD no home oxygen, GERD presenting with right-sided hip pain due to fall at home. Patient states that at home she is having her floors redone. She tripped over a blue mat that was covering the floors. Denies landing on her head or losing consciousness. Says she fully landed on her right hip. And found it difficult to bear weight. She walks with no assistive device. Pain radiates to groin and right knee. Denies any back pain. Admits is urinary frequency that has been going on for the past month. Denies any dysuria. Patient denies any fever, chills, chest pain, shortness of breath, abdominal pain. CXR independently interpreted displaying cardiomegaly Femur x-ray displaying no acute fracture/dislocation in the pelvis or right hip Lower extremity CT displaying acute nondisplaced fracture through the greater trochanter of the right hip / - She is seen and examined at bedside this morning, now on the 4th floor. She had no acute events overnight and has no complaints this morning. She continues to endorse some right hip pain, however notes that she is comfortable at this time. She is scheduled to undergo surgery today. REVIEW OF SYSTEMS: Pertinent positives and negatives noted in HPI. Physical Exam: General: nontoxic, no distress, appears at stated age Derm: warm, dry, intact Head: atraumatic, normocephalic, symmetric Eyes: EOMI, anicteric sclera Mouth: no lip lesion, mucus membranes moist Cardiovascular: S1 S2 reg, no murmur, rubs, or gallops Lungs: CTA bilateral, no rhonchi, no rales, no accessory muscle use Abdominal: soft, non-tender to palpataion, no appreciable organomegaly Extremities: no gross muscle atrophy, no edema, no contractures, right hip tenderness to palpation Neuro: Alert, Oriented, CNII-XII grossly intact, gait normal Psych: well appearing, appropriate affect Data Received Today: Labs: WBCs 7.98, hemoglobin 11.3, hematocrit 35.2, platelet 153; sodium 137, potassium 4.2, BUN 25.5, creatinine 1.3 Imagining: No new imaging today Assessment and Plan: #Nonoliguric FRANCIS #Mild hyponatremia, resolved #Elevated BUN -Creatinine 1.3 -Likely in the setting of dehydration -Normal saline at 70 cc an hour -Continue monitor BMP #Insulin-dependent diabetes mellitus #Hyperglycemia, resolved -Glucose 160 -start Humalog insulin sliding scale SQ -resume after surgery Humalog 10 units SQ AC TID -Lantus 10 units SQ at bedtime, hold morning lantus 15 units SQ in AM on day of surgery -Resume morning Lantus 15 units tomorrow 06/30/24 -Accu-Cheks ACHS -Monitor for hypoglycemia -Hold oral antidiabetic medication #Nondisplaced right hip fracture -DVT prophylaxis, antibiotics, pain management deferred to primary orthopedic service -She denies any history of severe COPD. Denies any CHF. Has quit smoking over 20 years ago. No recent hospitalizations w/in the past 2 days. Takes insulin for -diabetes and medication for hypertension. NSQIP risk assessment: -Serious complication 8.4% - 0.5% -Cardiac complication 1.2% -Readmission 10.5% -Sepsis 0.7% -VTE 1.0% Patient is medically optimized for surgery. patient mentioned that she had surgery on her right knee 6 months ago , and had a difficult recovery and was told it was due to anasthesia that "stayed longer in your system " she wanted the Anasthesia team to be aware Hold home Plavix Continue home metoprolol, risperidone, duloxetine, donepezil, Lamictal, ropinirole, atorvastatin DVT ppx: Code status: Full code F: NS 75 cc/h E: Replete as needed N: NPO after midnight A: Ambulatory at baseline Anticipated discharge place: Pending clinical course Anticipated discharge time: Pending clinical course Dictation was produced using SwitchNote dictation software. please excuse any grammatical, word or spelling errors. Jose Murry MD PGY-1 IM I have seen and evaluated the patient today. Discussed with the resident and agree with the residents finding and plan as documented in the resident's note. Changes highlighted in blue font. Objective - Vital Signs Vital signs: Vital Signs Temp 98.3 F 06/29/24 00:47 Pulse 73 06/29/24 00:47 Resp 16 06/29/24 00:47 BP 157/68 06/29/24 00:47 Pulse Ox 94 L 06/29/24 00:47 FiO2 Intake & Output 06/28/24 06/29/24 06/29/24 18:59 06:59 18:59 Weight 56.699 kg 56.699 kg Other: # Voids 1 - Labs CBC & Chem 7: 06/29/24 04:33 06/29/24 04:33 Labs: Abnormal Lab Results - Last 24 Hours (Table) 06/28/24 06/28/24 06/28/24 Range/Units 17:03 19:19 20:53 Sodium 132 L (137-145) mmol/L BUN 25 H (7-17) mg/dL Glucose 237 H (74-99) mg/dL POC Glucose (mg/dL) 288 H (70-110) mg/dL Alkaline Phosphatase 129 H (38-126) U/L Urine Appearance Cloudy H (Clear) Urine Protein 2+ H (Negative) Urine Glucose (UA) 3+ H (Negative) Urine Blood Trace H (Negative) Ur Leukocyte Esterase Large H (Negative) Urine WBC >182 H (0-5) /hpf Urine Bacteria Many H (None) /hpf Urine Yeast (Budding) Occasional H (None) /hpf 06/28/24 06/29/24 Range/Units 21:54 06:23 Sodium (137-145) mmol/L BUN (7-17) mg/dL Glucose (74-99) mg/dL POC Glucose (mg/dL) 317 H 165 H (70-110) mg/dL Alkaline Phosphatase (38-126) U/L Urine Appearance (Clear) Urine Protein (Negative) Urine Glucose (UA) (Negative) Urine Blood (Negative) Ur Leukocyte Esterase (Negative) Urine WBC (0-5) /hpf Urine Bacteria (None) /hpf Urine Yeast (Budding) (None) /hpf
[2024-06-29 11:38] LABS: Glucose,Whole Blood 184 mg/dL (70-110)
[2024-06-29 13:49] VITALS: BMI 22.8
[2024-06-29 16:40] LABS: Glucose,Whole Blood 180 mg/dL (70-110)
[2024-06-29 20:38] LABS: Glucose,Whole Blood 181 mg/dL (70-110)
[2024-06-29] MEDS ORDERED: risperiDONE 1 MG TAB PO SCH (21:00)
[2024-06-29] MEDS ORDERED: NON FORMULARY DRUG (Insulin Glargine,Hum.Rec.Anlog [Lantus Solostar Pen] 100 UNIT/ML Insul SQ SCH (21:00)
[2024-06-29] MEDS ORDERED: lamoTRIgine 100 MG TAB PO SCH (21:00)
[2024-06-29 21:18] LABS: Glucose,Whole Blood 195 mg/dL (70-110)
[2024-06-29] MEDS: IV FLUID CONTINUATION 1,000 ML IV ONE ×2 (21:32→23:10)
[2024-06-29] MEDS ORDERED: ONDANSETRON 4 MG/2 ML VIAL ONE (21:46)
[2024-06-29] MEDS ORDERED: PROPOFOL 10 MG/ML 20 ML VIAL IV ONE (21:46)
[2024-06-29] MEDS: SODIUM CHLORIDE 0.9% 50 ML with ceFAZolin 2,000 MG IV ONE (21:46)
[2024-06-29] MEDS ORDERED: MIDAZOLAM 2 MG/2 ML VIAL ONE (21:46)
[2024-06-29] MEDS ORDERED: LIDOCAINE 1% INJ 10MG/ML (20 ML MDV) ONE (21:46)
[2024-06-29] MEDS ORDERED: TRANEXAMIC 1,000 MG/100ML-NACL PREMIX BAG ONE (21:46)
[2024-06-29] MEDS ORDERED: KETOROLAC 15 MG/ML 1 ML VIAL ONE (21:46)
[2024-06-29] MEDS ORDERED: ROCURONIUM 10 MG/ML (5 ML VIAL) IV ONE (21:46)
[2024-06-29] MEDS ORDERED: fentaNYL (PF) 50 MCG/ML 2 ML AMP ONE (21:46)
[2024-06-29] MEDS ORDERED: PHENYLEPHRINE 10 MG/ML VIAL ONE (21:46)
[2024-06-29] MEDS ORDERED: NALOXONE 0.4 MG/ML 1 ML VIAL IV PRN (23:00)
[2024-06-29] MEDS ORDERED: BENZOCAINE/MENTHOL LOZENG 1 EACH LOZENGE MUCOUS MEM PRN (23:00)
[2024-06-29] MEDS ORDERED: HYDROmorphone 0.5 MG/0.5 ML SYRINGE IVP PRN (23:00)
[2024-06-29] MEDS: HYDROmorphone 0.5 MG/0.5 ML SYRINGE IVP STA (23:04)
--- NOTE | 2024-06-29 23:09 | XR ---
EXAMINATION TYPE: XR Hip Complete RT, [place] guidance operating room Intraoperative/procedural fluoroscop ic services were provided. CLINICAL INDICATION:Female, 78 years old with history of RIGHT FEMUR INTRAMEDULLARY HIP SCREW; , [facility] FINDINGS: Fluoroscopic images demonstrating right proximal femur intramedullary terri and screw fixation. No radi ographic evidence for complication. Total fluoroscopy time is 61 seconds. DAP: 8.0578 Gycm2 Please see the operative/procedural note for further details. [facility], , 06/29/2024 11:07 PM
--- NOTE | 2024-06-29 23:12 | P.OP ---
Date of Procedure: 06/29/24 Preoperative Diagnosis: Right proximal femur intertrochanteric femur fracture, closed neurovascularly intact, acute traumatic due to fall Postoperative Diagnosis: Same Anesthesia: GETA Pathology: other (Proximal femur reamings) Condition: stable Disposition: PACU Description of Procedure: Preoperative diagnosis: Right proximal femur intertrochanteric femur fracture, closed neurovascularly intact, acute traumatic due to fall Postoperative diagnosis: Same Procedure: intertrochanteric hip screw placement Use of fluoroscopic guidance Closed reduction Surgeon: Dr. Slade Harris.: assistant producer who is present that the entire the case persistence during positioning dissection exposure placement of hardware and closure Anesthesia: General Per Dr. Aquino Estimated blood loss: Approximately 150 cc Components implanted: [employer] InterTAN 10 mm IM hip screw with 125 degrees and a 85 mm lag screw and 80 mm compression screw and a 32.5 distal locking screw Disposition: To recovery room in good stable condition Operative indications The patient sustained a injury and suffered a hip fracture at the inter-t rochanteric area of her femur which was minimally displaced but causing severe pain and inability to ambulate. Her CT scan showed evidence of the fracture to the greater trochanter and we will to visualize the line through the base of the femoral neck along the intertrochanteric line to the lesser trochanter. It was well-positioned but the patient was having severe pain at her right hip with any sort of motion with internal and external rotation. She is unable to lift her leg up off the bed. She is painful to palpation around the area. She had significant pain with any motion at her right hip. We were involved in the case in regard to his hip fracture. After evaluation it was determined that they would be a candidate for hip internal fixation and stabilization via surgical intervention. This would give them the best chance of mobilization and ambulation. We discussed the range of treatment options from conservative to surgical. We discussed the fact that she is on blood thinners but was able to stop yesterday. We discussed the risk of postponing surgery as well as the possibility of bleeding in light of her blood thinners. We discussed the possibility of proceeding with surgery and possible bleeding complications along with other complications that can arise with postponing surgery. We discussed these at length with the family and the daughter as well as the patient and they elected proceed with surgical intervention as soon as possible. We answered their questions to the best of our ability healing which they can understand. They signed an informed consent. Operative summary After obtaining informed consent evaluation by anesthesia, preoperative evaluation and clearance for medical service, the patient was identified and prepped Trejo area and the surgical site was marked. There brought to the operating room where the given appropriate anesthesia by the anesthesia department in standard fashion without any complications. Once the anesthesia was established we were able to position the patient. The patient was placed on a fracture table with a well-padded perineal post. The operative side was placed in a foot sanchez stirrup which was well-padded well molded and placed in gentle in-line traction. The nonoperative leg was placed in a padded leg sanchez as well. C-arm was brought i. We had good alignment throughout and checked the alignment well in multiple planes with C arm. We are able to get good alignment good position of the intertrochanteric fracture with gentle reduction techniques and traction utilizing the fracture table. Once patient was well positioned lower extremity was prepped and draped in normal standard sterile fashion. An appropriate keystone protocol and timeout was completed and were able to proceed with surgery. He started point just proximal to the greater trochanter was established and a median incision approximately 2 inches in length approximately to the greater trochanter. I dissected down through the fascia and I was able to expose the tip of the greater trochanter. A sharp starting hole was established at the tip of the greater trochanter near the junction of the anterior and middle third. Positioning was confirmed with C-arm guidance. I was able to start the awl into the bone and then use a guidepin at the starting point establish down to the level of the lesser trochanter at the intramedullary space. I then used a starting reamer for the greater trochanter placed over the guidepin and reamed down appropriately under C-arm guidance. I was unable to place a guidepin into the intramedullary aspect of the femur and then reamed appropriately to the appropriate length. The positioning was confirmed on C-arm guidance. With the femur appropriately reamed I then chose the appropriate size intramedullary terri which was connected to the appropriate jig. The jig was checked for alignment. The area was copiously irrigated and suctioned dry and we're able place the terri at intramedullary space through the starting hole appropriately. It was seated down for appropriate position to align the leg pain into the femoral neck and head. A second incision was established at the site for the placement of the lag screw area and the guide was established at the lateral aspect of the femur and a guidepin was drilled into the femoral neck and head and near center center position. With this appropriate alignment and position where a reamer over the guidepin making sure not to penetrate the articular surface. The position was confirmed on C-arm guidance in AP and lateral positions. With this established we were able to place the appropriate size lag screw after measuring. We have position for the compression screw as well. This was drilled appropriately. Lag screw was placed into the femoral neck and head good alignment good position with excellent bony purchase. It was appropriately aligned and we placed a locking screw through the terri appropriately and checked that the position was established. I was able to drill and place the compression screw immediately adjacent and inferior to the lag screw which gave good compression across the fracture site in good alignment and position. With the area in good position able place a distal locking screw. We utilized the guide sleeve a separate incision was made at the skin. The guide sleeve was placed in the lateral aspect of the femur and the distal locking screw hole was established through the femur and distal locking hole of the intramedullary terri. It was measured appropriately and a distal locking screw was placed in good alignment and good position with excellent bony purchase. The position was checked to make sure it was through the appropriate hole in the intramedullary terri. With this established we're able to remove the jig completely from the terri and final images were taken which showed excellent alignment and position of the hardware and the fracture. With the terri in place and the fracture stable, although the incision sites were copiously irrigated and suctioned dry. Good hemostasis was maintained. Deep fascial layers were closed with #1 Vicryl. Subcu tissue was closed with 2-0 Vicryl. Skin was closed with juan was are cleaned and dried with dressed with Adaptic 4 x 4 ABDs and tape Drapes were broken down, the hip was held in stable position with the post being removed safely once the positioning was stabilized. The patient was then transferred back to their hospital bed being careful to maintain the hip and C- spine alignment and airway. Once stable to patient was transferred back to the postanesthesia care unit to be readmitted for pain control and DVT prophylaxis medical management and monitoring and mobilization we will continue follow patient closely throughout their postoperative course.
[2024-06-29 23:23] LABS: Glucose,Whole Blood 187 mg/dL (70-110)
[2024-06-30] MEDS: SODIUM CHLORIDE 0.9% 1,000 ML IV SCH (00:18)
[2024-06-30 01:15] LABS: Basophils % (A) 0 %; Eosinophils # (A) 0.4 k/uL (0-0.7); Eosinophils % (A) 4 %; HCT 36.5 % (34.0-46.0); HGB 11.3 gm/dL (11.4-16.0); Lymphocytes # (A) 1.3 k/uL (1.0-4.8); Lymphocytes % (A) 12 %; MCV 90.4 fL (80.0-100.0); Mean Platelet Volume 8.4; Monocytes # (A) 0.7 k/uL (0-1.0); Monocytes % (A) 6 %; Neutrophils # (A) 8.5 k/uL (1.3-7.7); Neutrophils % (A) 77 %; Platelet Count 141 k/uL (150-450); RBC 4.04 m/uL (3.80-5.40); RDW 14.3 % (11.5-15.5)
[2024-06-30] MEDS: SODIUM CHLORIDE 0.9% 1,000 ML IV ONE (02:18)
[2024-06-30 06:21] LABS: Glucose,Whole Blood 480 mg/dL (70-110)
[2024-06-30 06:29] LABS: African American GFR (CKD) 55 (>60 ml/min/1.73 sqM); Anion Gap 5 mmol/L; Blood Urea Nitrogen 22 mg/dL (7-17); Calcium 8.2 mg/dL (8.4-10.2); Carbon Dioxide 24 mmol/L (22-30); Chloride 102 mmol/L (98-107); Glucose 338 mg/dL (74-99); Non-African American GFR(CKD) 48 (>60 ml/min/1.73 sqM); Potassium 4.9 mmol/L (3.5-5.1); Sodium 131 mmol/L (137-145)
[2024-06-30] MEDS: INSULIN GLARGINE (LANTUS) 100 UNIT/ML SYR SQ SCH (06:51)
[2024-06-30] MEDS: INSULIN LISPRO (HumaLOG) 100 UNIT/ML 10 mL VL SQ SCH (06:51)
[2024-06-30 06:53] LABS: HCT 33.9 % (34.0-46.0); HGB 10.1 gm/dL (11.4-16.0); Hypochromasia Slight; MCH 27.7 pg (25.0-35.0); MCV 92.5 fL (80.0-100.0); Mean Platelet Volume 8.7; Platelet Count 136 k/uL (150-450); RBC 3.66 m/uL (3.80-5.40); RDW 14.2 % (11.5-15.5)
[2024-06-30] MEDS: lisinopriL 5 MG TAB PO SCH (07:56)
[2024-06-30] MEDS: HYDROcodone/APAP 5-325MG 1 EACH TAB PO PRN (08:05)
--- NOTE | 2024-06-30 09:48 | P.PN ---
Progress Note - Text Progress Note Date: 06/30/24 Orthopedics: History of present illness: Patient is a very pleasant 78-year-old female who is seen examined the bedside for follow-up evaluation of her right hip. She sustained a fall 2 days ago when she slipped on the kitchen floor landing on her right hip. She has had right hip pain since that time and has been unable to ambulate. She was brought to [facility] for further evaluation. Right hip x-ray and CT imaging was performed. She was found to have a right greater trochanter hip fracture. Yesterday she underwent right intertrochanteric hip screw placement for her right hip fracture. Postoperatively, she states her pain has significantly improved. She is not currently experiencing any significant pain at her right hip. We did discuss she may weight-bear as tolerated on her right lower extremity with assistance of a walker. She is encouraged to work with physical therapy today. Patient does have a history of right total knee arthroplasty. She also sustained a periprosthetic fracture requiring surgical intervention at her right femur. She states he is surgical interventions were performed in [place], [place]. Her last surgery was 6 months ago. Patient is not complaining of any pain at her knee. Her pain is specifically at her right hip. Her pain is controlled at rest. Patient is dressing is dry over her right hip. We did discuss she may resume her previously prescribed anticoagulation with Plavix. She continues to be seen and examined by medicine for her multiple other medical diagnoses. Patient's other medical diagnoses include insulin-dependent diabetes mellitus, CAD status post stent, and COPD. Physical Exam Intramedullary [place] for Intertrochanteric Fracture: Status post surgical day number 1 Patient is examined lying in bed Patient is awake and alert, and oriented 3 Vital signs stable Good chest excursion with deep inspiration and expiration; patient currently on O2 nasal cannula No signs or symptoms of DVT; no calf pain with palpation Lower extremity cuffs in place bilaterally Dressing of the right hip is clean, dry, and intact; no erythema, purulence, or signs of infection No pain with palpation over the surgical sites over the right hip and femur Full range of motion of ankles bilaterally Dorsiflexion, plantarflexion, and extensor hallucis longus positive sustained bilaterally Neurovascularly intact bilateral lower extremities No pain with palpation or movement towards the right knee with varus and valgus stress Evidence of well-healed incisions over the right anterior knee and lateral knee Pertinent studies: Lower extremity CT taken on 06/28/2024: Acute comminuted nondisplaced fracture through the greater trochanter of the right hip; metallic hardware from right total knee arthroplasty intact with lateral fixating plate of the distal femur with callus formation along the medial aspect of the distal femoral metaphysis with linear lucency extending through the distal femur and callus Right hip, right femur and pelvis X-ray taken on 06/28/2024: Intertrochanteric hip fracture is not identified at the right hip; evidence of right total knee arthroplasty with retained hardware with evidence of hardware at the distal femur due to fracture at the distal femoral metaphysis Assessment: Status post right intertrochanteric hip screw placement Status post fall Inability to ambulate due to right hip Right hip pain Acute comminuted nondisplaced fractures of the greater trochanter of the right hip at the intertrochanteric hip area History of right total knee arthroplasty History of right knee periprosthetic fracture requiring surgical retained hardware Anticoagulation use with Plavix History coronary artery disease with stent Insulin-dependent type 2 diabetes COPD Plan: 1. Patient to remain weightbearing as tolerated on the right lower extremity with the assistance of a walker; patient may work with physical therapy to increase mobility and ambulation 2. Keep dressing over the right hip clean, dry, and intact 3. Discontinue Trejo catheter when patient is able to increase mobility and ambulation 4. Continue pain control with oral [place] and IV Dilaudid as needed for pain control; prescription has been written, printed, signed, and placed in the patient's chart for hydrocodone 5 mg / 325 mg, 1 tab, every 6 hours, as needed for acute pain, dispense #28. 5. Patient may resume anticoagulation with Plavix as previously prescribed 6. Medicine to continue following the patient for their other medical diagnosis 7. We'll continue to follow the patient closely; depending on the patient's progress, we may plan for discharge as early as tomorrow, 07/01/2024, to a rehabilitation facility. Patient has been discussed in significant detail with case management who is currently working on authorization for discharge to the rehabilitation facility. 8. Patient can follow-up with Oliverio Arellano PA-C or Dr. Elvin June at [facility] in 2-3 weeks following discharge
--- NOTE | 2024-06-30 11:22 | P.PN ---
Subjective Progress Note Date: 06/30/24 78-year-old female with insulin-dependent diabetes mellitus, CAD s/p stent, COPD no home oxygen, GERD presenting with right-sided hip pain due to fall at home. Patient states that at home she is having her floors redone. She tripped over a blue mat that was covering the floors. Denies landing on her head or losing consciousness. Says she fully landed on her right hip. And found it difficult to bear weight. She walks with no assistive device. Pain radiates to groin and right knee. Denies any back pain. Admits is urinary frequency that has been going on for the past month. Denies any dysuria. Patient denies any fever, chills, chest pain, shortness of breath, abdominal pain. CXR independently interpreted displaying cardiomegaly Femur x-ray displaying no acute fracture/dislocation in the pelvis or right hip Lower extremity CT displaying acute nondisplaced fracture through the greater trochanter of the right hip 06/29 - She is seen and examined at bedside this morning, now on the 4th floor. She had no acute events overnight and has no complaints this morning. She continues to endorse some right hip pain, however notes that she is comfortable at this time. She is scheduled to undergo surgery today. 06/30 - She is seen and examined at bedside this morning. She had her surgery completed last night. Her blood glucose was noted to be elevated earlier this morning at 338, on top of her scheduled Lantus dose is being restarted, Humalog 10 units 3 times daily was additionally restarted. Will continue to monitor blood glucose closely. She had no acute events overnight, and has no acute complaints at this time. REVIEW OF SYSTEMS: Pertinent positives and negatives noted in HPI. Physical Exam: General: nontoxic, no distress, appears at stated age Derm: warm, dry, intact Head: atraumatic, normocephalic, symmetric Eyes: EOMI, anicteric sclera Mouth: no lip lesion, mucus membranes moist Cardiovascular: S1 S2 reg, no murmur, rubs, or gallops Lungs: CTA bilateral, no rhonchi, no rales, no accessory muscle use Abdominal: soft, non-tender to palpataion, no appreciable organomegaly Extremities: no gross muscle atrophy, no edema, no contractures, right hip tenderness to palpation Neuro: Alert, Oriented, CNII-XII grossly intact, gait normal Psych: well appearing, appropriate affect Data Received Today: Labs: WBCs 8.0, hemoglobin 10.1, hematocrit 33.9, platelet 136; sodium 131, potassium 4.9, BUN 22, creatinine 1.11, glucose 338, calcium 8.2 Imagining: Postoperative x-ray showed right proximal femur intramedullary terri and screw fixation without evidence of complication. Assessment and Plan: #Nonoliguric FRANCIS #Mild hyponatremia, -Creatinine 1.11 -Likely in the setting of dehydration -Normal saline at 70 cc an hour -Continue monitor BMP #Insulin-dependent diabetes mellitus #Hyperglycemia, resolved -Glucose 338 -start Humalog insulin sliding scale SQ -Humalog 10 units SQ AC TID has been resumed -Lantus 10 units SQ at bedtime, morning Lantus 15 units will begin again today -Accu-Cheks ACHS -Monitor for hypoglycemia -Hold oral antidiabetic medication #Acute blood loss anemia, expected outcome of surgery -Hemoglobin this morning 10.1 -Ferrous Sulfate 325mg daily for a month -Continue to monitor CBC closely -No signs of acute bleeding #Nondisplaced right hip fracture -DVT prophylaxis, antibiotics, pain management deferred to primary orthopedic service -She denies any history of severe COPD. Denies any CHF. Has quit smoking over 20 years ago. No recent hospitalizations w/in the past 2 days. Takes insulin for -diabetes and medication for hypertension. NSQIP risk assessment: -Serious complication 8.4% - 0.5% -Cardiac complication 1.2% -Readmission 10.5% -Sepsis 0.7% -VTE 1.0% She is medically optimized for discharge at this time. We will continue to follow for the duration of her stay. Thank you very much for this consult. DVT ppx: Heparin 5000 units subcu every 8 hours Code status: Full code F: NS 75 cc/h E: Replete as needed N: NPO after midnight A: Ambulatory at baseline Anticipated discharge place: Pending clinical course Anticipated discharge time: Pending clinical course Dictation was produced using [employer] dictation software. please excuse any grammatical, word or spelling errors. Jose Murry MD PGY-1 IM I saw and evaluated the patient during the rosas and critical portions of this encounter, and discussed the case in detail with the resident author of this note, I agree with the Assessment and Plan, and my changes, if any, are highli ghted in blue. Objective - Vital Signs Vital signs: Vital Signs Temp 97.6 F 06/30/24 01:41 Pulse 72 06/30/24 02:29 Resp 16 06/30/24 01:41 BP 110/58 06/30/24 04:19 Pulse Ox 99 06/30/24 01:41 FiO2 Intake & Output 06/29/24 06/30/24 06/30/24 18:59 06:59 18:59 Intake Total 1000 Output Total 650 1000 Balance -650 0 Weight 56.699 kg Intake: IV 1000 Output: Urine 650 850 Uretheral (Trejo) 150 Estimated Blood Loss 150 Other: Voiding Method Indwelling Catheter Indwelling Catheter - Labs CBC & Chem 7: 06/30/24 05:46 06/30/24 05:46 Labs: Abnormal Lab Results - Last 24 Hours (Table) 06/29/24 06/29/24 06/29/24 Range/Units 04:33 04:33 11:36 WBC (3.8-10.6) k/uL RBC 3.97 L (4.10-5.20) X 10*6/uL Hgb 11.3 L (12.0-15.0) g/dL Hct 35.2 L (37.2-46.3) % MCHC (31.0-37.0) g/dL Plt Count (150-450) k/uL Neutrophils # (1.3-7.7) k/uL Eosinophils # 0.55 H (0.04-0.35) X 10*3/uL Sodium (137-145) mmol/L BUN (7-17) mg/dL Creatinine (0.52-1.04) mg/dL Est GFR (CKD-EPI) 42 L (>=60) Glucose 160 H (70-110) mg/dL POC Glucose (mg/dL) 184 H (70-110) mg/dL Calcium (8.4-10.2) mg/dL Albumin 3.2 L (3.8-4.9) g/dL Albumin/Globulin Ratio 1.07 L (1.60-3.17) Ratio 06/29/24 06/29/24 06/29/24 Range/Units 16:39 20:36 21:17 WBC (3.8-10.6) k/uL RBC (4.10-5.20) X 10*6/uL Hgb (12.0-15.0) g/dL Hct (37.2-46.3) % MCHC (31.0-37.0) g/dL Plt Count (150-450) k/uL Neutrophils # (1.3-7.7) k/uL Eosinophils # (0.04-0.35) X 10*3/uL Sodium (137-145) mmol/L BUN (7-17) mg/dL Creatinine (0.52-1.04) mg/dL Est GFR (CKD-EPI) (>=60) Glucose (70-110) mg/dL POC Glucose (mg/dL) 180 H 181 H 195 H (70-110) mg/dL Calcium (8.4-10.2) mg/dL Albumin (3.8-4.9) g/dL Albumin/Globulin Ratio (1.60-3.17) Ratio 06/29/24 06/30/24 06/30/24 Range/Units 23:09 00:27 05:46 WBC 11.0 H (3.8-10.6) k/uL RBC 3.66 L (4.10-5.20) X 10*6/uL Hgb 11.3 L 10.1 L (12.0-15.0) g/dL Hct 33.9 L (37.2-46.3) % MCHC 30.0 L (31.0-37.0) g/dL Plt Count 141 L 136 L (150-450) k/uL Neutrophils # 8.5 H (1.3-7.7) k/uL Eosinophils # (0.04-0.35) X 10*3/uL Sodium (137-145) mmol/L BUN (7-17) mg/dL Creatinine (0.52-1.04) mg/dL Est GFR (CKD-EPI) (>=60) Glucose (70-110) mg/dL POC Glucose (mg/dL) 187 H (70-110) mg/dL Calcium (8.4-10.2) mg/dL Albumin (3.8-4.9) g/dL Albumin/Globulin Ratio (1.60-3.17) Ratio 06/30/24 06/30/24 Range/Units 05:46 06:20 WBC (3.8-10.6) k/uL RBC (4.10-5.20) X 10*6/uL Hgb (12.0-15.0) g/dL Hct (37.2-46.3) % MCHC (31.0-37.0) g/dL Plt Count (150-450) k/uL Neutrophils # (1.3-7.7) k/uL Eosinophils # (0.04-0.35) X 10*3/uL Sodium 131 L (137-145) mmol/L BUN 22 H (7-17) mg/dL Creatinine 1.11 H (0.52-1.04) mg/dL Est GFR (CKD-EPI) (>=60) Glucose 338 H (70-110) mg/dL POC Glucose (mg/dL) 480 H (70-110) mg/dL Calcium 8.2 L (8.4-10.2) mg/dL Albumin (3.8-4.9) g/dL Albumin/Globulin Ratio (1.60-3.17) Ratio
[2024-06-30 11:24] LABS: Glucose,Whole Blood 346 mg/dL (70-110)
[2024-06-30] MEDS: FERROUS SULFATE 325 MG TAB PO SCH (12:22)
[2024-06-30 16:21] LABS: Glucose,Whole Blood 281 mg/dL (70-110)
[2024-06-30 20:28] LABS: Glucose,Whole Blood 259 mg/dL (70-110)
[2024-07-01 06:01] LABS: African American GFR (CKD) 71 (>60 ml/min/1.73 sqM); Anion Gap 7 mmol/L; Blood Urea Nitrogen 21 mg/dL (7-17); Carbon Dioxide 20 mmol/L (22-30); Chloride 104 mmol/L (98-107); Glucose 232 mg/dL (74-99); Non-African American GFR(CKD) 62 (>60 ml/min/1.73 sqM); Potassium 4.3 mmol/L (3.5-5.1); Sodium 131 mmol/L (137-145)
[2024-07-01 06:14] LABS: Glucose,Whole Blood 261 mg/dL (70-110)
[2024-07-01 08:42] VITALS: RESP 19; TEMP 98.4
[2024-07-01 09:17] VITALS: BP 117/67; PULSE 73
[2024-07-01 11:50] LABS: Glucose,Whole Blood 232 mg/dL (70-110)
--- NOTE | 2024-07-01 11:58 | P.DS ---
Providers Date of admission: 06/28/24 19:57 Expected date of discharge: 07/01/24 Attending physician: Beatris June Consults: 06/28/24 19:52 Consult Physician Routine Consulting Provider: Heather Kuhn Consult Reason/Comments: medical management Do you want consulting provider notified?: Already Contacted Primary care physician: Physician Nonstaff - Discharge Diagnosis(es) (1) Closed intertrochanteric fracture of right hip Current Visit: Yes Status: Acute (2) Right hip pain Current Visit: Yes Status: Acute Hospital Course: This is a 78-year-old female who sustained a fracture of her right hip after a fall . The patient presented for evaluation in the emergency room where a CT of the right hip revealed an intertrochanteric femur fracture. After discussion and consideration patient elects to proceed with closed reduction and intertrochanteric hip screw placement. The patient is seen preoperatively by Dr. June and medically cleared for surgery by internal medicine. Patient is admitted to [facility] on 06/28/2024 to and closed reduction and intertrochanteric hip screw placement is performed on 06/29/2024. The procedure is performed without complication or sequelae. The patient is doing well postoperatively. Labs and vital signs are stable on day of discharge. On day of discharge patient's hip incision is healing well. There is minimal erythema. There is no drainage noted at this time. There is minimal soft tissue swelling to the hip and thigh. Patient has full foot and ankle motion without difficulty or pain. Calf is soft and nontender to palpation. Neurovascular status to the right lower extremity is intact. Patient is discharged to rehab in good condition. Please see med rec for accurate list of home medications. Patient Condition at Discharge: Stable Plan - Discharge Summary Discharge Rx Participant: Yes New Discharge Prescriptions: New HYDROcodone/APAP 5-325MG [[place] 5] 1 each PO Q6HR PRN #28 tab PRN Reason: Pain No Action Atorvastatin [Lipitor] 40 mg PO DAILY lamoTRIgine [LaMICtal] 200 mg PO HS Donepezil [Aricept] 10 mg PO DAILY sitaGLIPtin [Januvia] 100 mg PO DAILY DULoxetine HCL [Cymbalta] 60 mg PO DAILY Isosorbide Mononitrate ER [Imdur] 60 mg PO DAILY tab.er.24h Clopidogrel [Plavix] 75 mg PO DAILY #90 tab Metoprolol Succinate (ER) [Toprol Xl] 50 mg PO DAILY Insulin Glargine,Hum.rec.anlog [Lantus Solostar Pen] 10 units SQ HS Acetaminophen Tab [Tylenol Tab] 1,000 mg PO Q6HR PRN PRN Reason: Fever And/ Or Pain Coconut Tabs(Otc) 2 tab PO BID Insulin Glargine,Hum.rec.anlog [Lantus Solostar Pen] 15 units SQ DAILY risperiDONE [RisperDAL] 1 mg PO HS Famotidine 20 mg PO DAILY lisinopriL [Zestril] 5 mg PO DAILY Cranberry(Unknown Dose) 2 tab PO DAILY Acetaminophen/Diphenhydramine [Tylenol PM 500-25mg] 2 tab PO HS PRN PRN Reason: Insomnia INSULIN LISPRO (HumaLOG) [HumaLOG] 10 units SQ AC-TID rOPINIRole HCL [Requip] 0.25 mg PO HS Discharge Medication List Atorvastatin [Lipitor] 40 mg PO DAILY 03/13/16 [History] lamoTRIgine [LaMICtal] 200 mg PO HS 03/13/16 [History] DULoxetine HCL [Cymbalta] 60 mg PO DAILY 01/31/19 [History] Donepezil [Aricept] 10 mg PO DAILY 01/31/19 [History] sitaGLIPtin [Januvia] 100 mg PO DAILY 01/31/19 [History] Clopidogrel [Plavix] 75 mg PO DAILY #90 tab 02/04/19 [Rx] Isosorbide Mononitrate ER [Imdur] 60 mg PO DAILY tab.er.24h 02/04/19 [Rx] Metoprolol Succinate (ER) [Toprol Xl] 50 mg PO DAILY 03/15/20 [History] Acetaminophen Tab [Tylenol Tab] 1,000 mg PO Q6HR PRN 06/28/24 [History] Acetaminophen/Diphenhydramine [Tylenol PM 500-25mg] 2 tab PO HS PRN 06/28/24 [History] Coconut Tabs(Otc) 2 tab PO BID 06/28/24 [History] Cranberry(Unknown Dose) 2 tab PO DAILY 06/28/24 [History] Famotidine 20 mg PO DAILY 06/28/24 [History] INSULIN LISPRO (HumaLOG) [HumaLOG] 10 units SQ AC-TID 06/28/24 [History] Insulin Glargine,Hum.rec.anlog [Lantus Solostar Pen] 10 units SQ HS 06/28/24 [History] Insulin Glargine,Hum.rec.anlog [Lantus Solostar Pen] 15 units SQ DAILY 06/28/24 [History] lisinopriL [Zestril] 5 mg PO DAILY 06/28/24 [History] rOPINIRole HCL [Requip] 0.25 mg PO HS 06/28/24 [History] risperiDONE [RisperDAL] 1 mg PO HS 06/28/24 [History] HYDROcodone/APAP 5-325MG [[place] 5] 1 each PO Q6HR PRN #28 tab 06/30/24 [Rx] Follow up Appointment(s)/Referral(s): Oliverio Arellano, PAC [PHYSICIAN VEHICLE SALES PROFESSIONAL] - 2 Weeks (Patient may follow-up with Oliverio Arellano PA-C or Dr. Elvin June at [facility] in 2-3 weeks following discharge. 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 Keep dressing over the right hip intact over the next 7 days 2. Patient may shower without a dressing intact after 7 days his incision site remains clean and dry 3. Continue with dressing changes as needed over the right hip 4. Weight-bear as tolerated right lower extremity with a walker 5. Take medications as prescribed 6. Any questions or concerns patient may contact [facility] at [phone] Discharge Disposition: TRANSFER TO SNF/ECF
--- NOTE | 2024-07-01 12:34 | P.PN ---
Subjective Progress Note Date: 07/01/24 78-year-old female with insulin-dependent diabetes mellitus, CAD s/p stent, COPD no home oxygen, GERD presenting with right-sided hip pain due to fall at home. Patient states that at home she is having her floors redone. She tripped over a blue mat that was covering the floors. Denies landing on her head or losing consciousness. Says she fully landed on her right hip. And found it difficult to bear weight. She walks with no assistive device. Pain radiates to groin and right knee. Denies any back pain. Admits is urinary frequency that has been going on for the past month. Denies any dysuria. Patient denies any fever, chills, chest pain, shortness of breath, abdominal pain. CXR independently interpreted displaying cardiomegaly Femur x-ray displaying no acute fracture/dislocation in the pelvis or right hip Lower extremity CT displaying acute nondisplaced fracture through the greater trochanter of the right hip 06/29 - She is seen and examined at bedside this morning, now on the 4th floor. She had no acute events overnight and has no complaints this morning. She continues to endorse some right hip pain, however notes that she is comfortable at this time. She is scheduled to undergo surgery today. 06/30 - She is seen and examined at bedside this morning. She had her surgery completed last night. Her blood glucose was noted to be elevated earlier this morning at 338, on top of her scheduled Lantus dose is being restarted, Humalog 10 units 3 times daily was additionally restarted. Will continue to monitor blood glucose closely. She had no acute events overnight, and has no acute complaints at this time. 07/01 - She is seen and examined at bedside this morning. She had no acute events overnight, and has no acute complaints this morning. Resting comfortably bed when seen today. States that she continues to have generalized postsurgical pain/discomfort. REVIEW OF SYSTEMS: Pertinent positives and negatives noted in HPI. Physical Exam: General: nontoxic, no distress, appears at stated age Derm: warm, dry, intact Head: atraumatic, normocephalic, symmetric Eyes: EOMI, anicteric sclera Mouth: no lip lesion, mucus membranes moist Cardiovascular: S1 S2 reg, no murmur, rubs, or gallops Lungs: CTA bilateral, no rhonchi, no rales, no accessory muscle use Abdominal: soft, non-tender to palpataion, no appreciable organomegaly Extremities: no gross muscle atrophy, no edema, no contractures, right hip tenderness to palpation Neuro: Alert, Oriented, CNII-XII grossly intact, gait normal Psych: well appearing, appropriate affect Data Received Today: Labs: Sodium 131, potassium 4.3, bicarb 20, BUN 21, creatinine 0.89, calcium 8.0 Imagining: Postoperative x-ray showed right proximal femur intramedullary terri and screw fixation without evidence of complication. Assessment and Plan: #Nonoliguric FRANCIS, resolved #Mild hyponatremia #Elevated BUN -Creatinine 0.89 -Likely in the setting of dehydration -Normal saline at 70 cc an hour -Continue monitor BMP #Insulin-dependent diabetes mellitus #Hyperglycemia, resolved -Glucose 232 -start Humalog insulin sliding scale SQ -Humalog 10 units SQ AC TID has been resumed -Lantus 10 units SQ at bedtime, increased morning Lantus to 20 units will begin tomorrow -Accu-Cheks ACHS -Monitor for hypoglycemia -Hold oral antidiabetic medication #Acute blood loss anemia, expected outcome of surgery -Hemoglobin this morning -Ferrous Sulfate 325mg daily for a month -Continue to monitor CBC closely -No signs of acute bleeding #Nondisplaced right hip fracture -DVT prophylaxis, antibiotics, pain management deferred to primary orthopedic service -She denies any history of severe COPD. Denies any CHF. Has quit smoking over 20 years ago. No recent hospitalizations w/in the past 2 days. Takes insulin for -diabetes and medication for hypertension. NSQIP risk assessment: -Serious complication 8.4% - 0.5% -Cardiac complication 1.2% -Readmission 10.5% -Sepsis 0.7% -VTE 1.0% She is medically optimized for discharge at this time. We will continue to karolina castano for the duration of her stay. Thank you very much for this consult. DVT ppx: Heparin 5000 units subcu every 8 hours Code status: Full code F: NS 75 cc/h E: Replete as needed N: NPO after midnight A: Ambulatory at baseline Anticipated discharge place: Likely [facility] Anticipated discharge time: Pending clinical course Dictation was produced using [employer] dictation software. please excuse any g rammatical, word or spelling errors. Jose Murry MD PGY-1 IM I saw and evaluated the patient during the rosas and critical portions of this encounter, and discussed the case in detail with the resident author of this note, I agree with the Assessment and Plan, and my changes, if any, are highlighted in blue. Objective - Vital Signs Vital signs: Vital Signs Temp 99 F 07/01/24 06:18 Pulse 81 07/01/24 01:29 Resp 18 07/01/24 01:29 BP 150/65 07/01/24 01:29 Pulse Ox 96 07/01/24 01:29 FiO2 Intake & Output 06/30/24 07/01/24 07/01/24 18:59 06:59 18:59 Other: Voiding Method Indwelling Catheter Diaper # Voids 2 2 - Labs CBC & Chem 7: 06/30/24 05:46 07/01/24 05:27 Labs: Abnormal Lab Results - Last 24 Hours (Table) 06/30/24 06/30/24 06/30/24 Range/Units 11:22 16:20 20:27 Sodium (137-145) mmol/L Carbon Dioxide (22-30) mmol/L BUN (7-17) mg/dL Glucose (74-99) mg/dL POC Glucose (mg/dL) 346 H 281 H 259 H (70-110) mg/dL Calcium (8.4-10.2) mg/dL 07/01/24 07/01/24 Range/Units 05:27 06:14 Sodium 131 L (137-145) mmol/L Carbon Dioxide 20 L (22-30) mmol/L BUN 21 H (7-17) mg/dL Glucose 232 H (74-99) mg/dL POC Glucose (mg/dL) 261 H (70-110) mg/dL Calcium 8.0 L (8.4-10.2) mg/dL
[2024-07-02] MEDS ORDERED: INSULIN GLARGINE (LANTUS) 100 UNIT/ML SYR SQ SCH (07:00)
== END 2024-07-01 13:22 | disposition swing bed (61) | DRG 481 ==
LOC: EC 16:46 → 4SSUR 19:57
PROVIDERS: ADMIT Orthopaedic Surgery Orthopaedic Surgery of the Spine; ATTEND Orthopaedic Surgery Orthopaedic Surgery of the Spine
PROC: 0QS634Z Reposition Right Upper Femur with Internal Fixation Device, Percutaneous Approach (ICD-10-PCS; principal; 2024-06-29 09:25)
DX: S72.144A Nondisplaced intertrochanteric fracture of right femur, initial encounter for closed fracture (principal); D62 Acute posthemorrhagic anemia; N17.9 Acute kidney failure, unspecified; J44.9 Chronic obstructive pulmonary disease, unspecified; E11.65 Type 2 diabetes mellitus with hyperglycemia; I11.9 Hypertensive heart disease without heart failure; F32.A Depression, unspecified; E87.1 Hypo-osmolality and hyponatremia; N39.0 Urinary tract infection, site not specified; Z79.4 Long term (current) use of insulin; E78.5 Hyperlipidemia, unspecified; E86.0 Dehydration; I25.10 Atherosclerotic heart disease of native coronary artery without angina pectoris; K21.9 Gastro-esophageal reflux disease without esophagitis; M97.11XS Periprosthetic fracture around internal prosthetic right knee joint, sequela; Z79.02 Long term (current) use of antithrombotics/antiplatelets; Z79.84 Long term (current) use of oral hypoglycemic drugs; Z79.899 Other long term (current) drug therapy; Z87.891 Personal history of nicotine dependence; W01.0XXA Fall on same level from slipping, tripping and stumbling without subsequent striking against object, initial encounter; Y92.000 Kitchen of unspecified non-institutional (private) residence as the place of occurrence of the external cause; Z95.5 Presence of coronary angioplasty implant and graft; Z96.651 Presence of right artificial knee joint
CPT/HCPCS: 36415; 71045; 73502; 80048; 80053; 81001; 83735; 85025; 85027; 85610; 85730; 88307; 88311; 93005; 96365; 99285